=== PATIENT | female | born 1980 | race Caucasian/White ===

== ENCOUNTER 2018-02-04 13:58 | Inpatient (IN) ==
--- NOTE | 2018-02-04 14:44 | ED ---
HPI General Chief complaint: Head Injury Stated complaint: hit head x thursday (-loc) headache/confused Time Seen by Provider: 02/04/18 14:13 History of Present Illness HPI Narrative: The patient was seen and examined in the presence of the nurse. This patient is brought in by her . She had a head injury Thursday 10 AM. Duration 3 days. Severity is moderate. She tripped over a bunched up carpet and fell backwards and hit the back of her head. She complains of headache but had no LOC and no neck symptoms. She does have some bruising in the left mastoid area. She reports diminished hearing in the left ear. She has had some confusion issues. She takes no blood thinners. She has no alleviating factors. No exacerbating factors. Related Data Home Medications Medication Instructions Recorded Confirmed levonorgestrel [Mirena] 02/04/18 Allergies Allergy/AdvReac Type Severity Reaction Status Date / Time No Known Allergies Allergy Unverified 02/04/18 13:59 Review of Systems ROS: all other systems reviewed are negative [facility] Medical History Medical History Fibroids (Acute) No active medical problems (Acute) Surgical History Surgical History Previous section (Acute) Social History Social History Substance History: No History of Abuse Second Hand Smoke Exposure: No Smoking Status: Former smoker Tobacco Type: Cigarettes How Often Do You Have a Drink Containing Alcohol: Monthly or less Recent Travel in [facility] within the Last 8 Weeks: No Recent Out of Country Travel within the Last 8 Weeks: No Immunization History Tetanus Immunization: <5 Years Hx Influenza Vaccine This Season: No Exam Narrative Exam Narrative: GENERAL: Thin pleasant well-developed patient in no apparent distress. SKIN: Focused skin assessment reveals no rash and nodules. Skin is Warm and dry. HEAD: There is some ecchymosis to the left mastoid without crepitus or tenderness. Normocephalic. EYES: Pupils equal and round. No scleral icterus. No injection or drainage. ENT: No nasal bleeding or discharge. Mucous membranes pink and moist. Right TM is normal. Left TM is largely nonvisible due to cerumen obstruction. NECK: Trachea midline. No JVD. No midline tenderness CARDIOVASCULAR: Regular rate and rhythm. No murmur appreciated. RESPIRATORY: No accessory muscle use. Clear to auscultation. Breath sounds equal bilaterally. GASTROINTESTINAL: Abdomen soft, non-tender, nondistended. Hepatic and splenic margins not palpable. MUSCULOSKELETAL: No obvious deformities. No clubbing. No cyanosis. No edema. NEUROLOGICAL: Awake and alert. No obvious cranial nerve deficits. Motor grossly within normal limits. Normal speech. PSYCHIATRIC: Appropriate mood and affect; insight and judgment somewhat reduced . Course Initial Documented Vital Signs Temperature 97.8 F 02/04/18 13:59 Pulse Rate 91 H 02/04/18 13:59 Respiratory Rate 18 02/04/18 13:59 Blood Pressure 163/80 H 02/04/18 13:59 Pulse Oximetry 100 02/04/18 13:59 Last Documented Vital Signs Temperature 97.8 F 02/04/18 13:59 Pulse Rate 79 02/04/18 15:09 Respiratory Rate 16 02/04/18 15:09 Blood Pressure 135/81 02/04/18 15:09 Pulse Oximetry 100 02/04/18 15:09 Critical Care Time Critical Care Time: Yes Total Critical Care Time: 78 Attestation: Aggregate critical care time was 40 minutes. Time to perform other separately billable procedures was not included in the critical care time. My time did not include minutes spent treating any other patients simultaneously or on activities that did not directly contribute to the patient's treatment. The services I provided to this patient were to treat and/or prevent clinically significant deterioration that could result in: Permanent neurologic deficit, brain stem herniation, I provided critical care services requiring my management, as noted below: Chart data review, documentation time, medication orders and management, vital sign assessments/reviewing monitor data, ordering and reviewing lab tests, ordering and interpreting/reviewing x-rays and diagnostic studies, care of the patient and discussion of the patient with the admitting physicians. Medical Decision Making MDM Narrative Medical decision making narrative: Patient suffered a head injury 3 days ago and has some findings that are concerning for basilar skull fracture. I discussed this with the survey cad technician and I have ordered brain CT. She has had some confusion but no neurologic abnormalities otherwise beyond reported decreased left-sided hearing. IV placed and labs sent. Labs are reasonably normal. CT scan however shows temporal skull fracture with intracranial hemorrhage with mass-effect and midline shift. I reviewed the case in detail with neurosurgeon Dr. Bacon. He recommends transfer to the main hospital intensive care and admission to the trauma surgeon. I reviewed with the trauma surgeon who will agree to admit. Patient is critically ill. Multiple rechecks were done. She is controlling her airway fine at this time. Medical Screen Exam Complete: Yes Emergency Medical Condition: Yes Medical Records Medical records reviewed: Yes I reviewed the patient's medical records. Lab Data Lab results reviewed: Yes I reviewed the patient's lab results. Result diagrams: 02/04/18 14:40 02/04/18 14:40 Lab Results 02/04/18 02/04/18 02/04/18 Range/Units 14:40 14:40 14:40 CBC w Diff Slide review pending WBC 13.2 H (4.0-11.0) th/mm3 RBC 4.13 (4.00-5.30) mil/mm3 Hgb 13.4 (11.6-15.3) gm/dL Hct 38.5 (35.0-46.0) % MCV 93.4 (80.0-100.0) fL MCH 32.4 (27.0-34.0) pg MCHC 34.7 (32.0-36.0) % RDW 12.4 (11.6-17.2) % Plt Count 327 (150-450) th/mm3 MPV 7.6 (7.0-11.0) fL Neut % (Auto) 70.6 H (16.0-70.0) % Lymph % (Auto) 16.8 (9.0-44.0) % [place] % (Auto) 10.9 H (0.0-8.0) % Eos % (Auto) 0.1 (0.0-4.0) % Baso % (Auto) 1.6 (0.0-2.0) % Neut # (Auto) 9.4 H (1.8-7.7) th/mm3 Lymph # (Auto) 2.2 (1.0-4.8) th/mm3 [place] # (Auto) 1.4 H (0.0-0.9) th/mm3 Eos # (Auto) 0.0 (0.0-0.4) th/mm3 Baso # (Auto) 0.2 (0.0-0.2) th/mm3 Differential Comment . PT 10.4 (9.8-11.6) sec INR 1.0 Ratio APTT 24.0 L (24.3-30.1) sec Sodium 140 (136-145) meq/L Potassium 3.5 (3.5-5.1) meq/L Chloride 104 (98-107) meq/L Carbon Dioxide 26.8 (21.0-32.0) meq/L Anion Gap 9 (5-15) meq/L BUN 17 (7-18) mg/dL Creatinine 0.71 (0.50-1.00) mg/dL Estimated GFR Greater than 89 (>89) mL/min Random Glucose 128 H (74-106) mg/dL Calcium 9.1 (8.5-10.1) mg/dL Imaging Data Attestation: I personally reviewed and interpreted this imaging study as follows : Radiologist's impression: Head CT 02/04/18 14:26 CONCLUSION: 1. The examination demonstrates a 1.7 x 4.5 cm intraparenchymal hemorrhage in the left temporal lobe. There is moderate edema and some degree of mass effect associated with this. There is 3 mm of znus-[id number] falcine shift. 2. Probable skull fracture as described above. Discharge Plan Discharge Disposition Patient Disposition: 30 Still Patient Discharge Details Diagnosis: ICH (intracerebral hemorrhage), Skull fracture, non depressed Physicians Team ED Provider: Bertin Diaz Primary Care Provider: Primary Care Nikki Dixon Rxs /Orders / Referrals /Forms Prescriptions: No Action levonorgestrel [Mirena] 20 mcg/24 hr (5 years) Intrauterine Device RF: 0 Discharge Interventions Interventions: Vital Signs Last Done: 02/04/18 15:09 Status ED Status: With Doctor
[2018-02-04 14:59] LABS: Baso # (Auto) 0.2 th/mm3 (0.0-0.2); Baso % (Auto) 1.6 % (0.0-2.0); Eos % (Auto) 0.1 % (0.0-4.0); Hematocrit 38.5 % (35.0-46.0); Hemoglobin 13.4 gm/dL (11.6-15.3); Lymph # (Auto) 2.2 th/mm3 (1.0-4.8); Lymph % (Auto) 16.8 % (9.0-44.0); Mean Corpuscular HGB Conc 34.7 % (32.0-36.0); Mean Corpuscular Hemoglobin 32.4 pg (27.0-34.0); Mean Corpuscular Volume 93.4 fL (80.0-100.0); Mean Platelet Volume 7.6 fL (7.0-11.0); Mono # (Auto) 1.4 th/mm3 (0.0-0.9); Mono % (Auto) 10.9 % (0.0-8.0); Neut # (Auto) 9.4 th/mm3 (1.8-7.7); Neut % (Auto) 70.6 % (16.0-70.0); Platelet Count 327 th/mm3 (150-450); Red Blood Count 4.13 mil/mm3 (4.00-5.30); Red Cell Distribution Width 12.4 % (11.6-17.2); White Blood Count 13.2 th/mm3 (4.0-11.0)
[2018-02-04 15:06] LABS: Chloride 104 meq/L (98-107); Potassium 3.5 meq/L (3.5-5.1); Sodium 140 meq/L (136-145)
--- NOTE | 2018-02-04 15:06 | CT ---
EXAM DATE: 02/04/2018 2:33 PM EDT AGE/SEX: 37 years / Female INDICATIONS: Trauma. Hit head 4 days ago. Left head pain. Confusion. Evaluate for basal skull fractu re. CLINICAL DATA: This is the patient's initial encounter. Patient reports that signs and symptoms have been present for 4 - 6 days and indicates a pain score of 5/10. MEDICAL/SURGICAL HISTORY: None. section. RADIATION DOSE: 53.53 CTDI (mGy) COMPARISON: No prior exams available for comparison. TECHNIQUE: CT of the head without contrast. Using automated exposure control and adjustment of the mA and/or kV according to patient size, radiation dose was kept as low as reasonably achievable to ob tain optimal diagnostic quality images. DICOM format image data is available electronically for revi ew and comparison. FINDINGS: The examination demonstrates a sizable area of intraparenchymal hemorrhage in the left temporal berkley x. There is extra-axial hemorrhage seen as well along the anterior aspect of the left temporal lobe. There is surrounding vasogenic edema. There is 3 cm of zweq-lb-inosi falcine shift. There is mass eff ect on anterior and posterior horn of the lateral ventricular system on the left. No mass lesion is identified. The sulci and gyri are otherwise intact. The appearance of the posterio r fossa is unremarkable. Bone windowed imaging is provided. The exam demonstrates a small lucency in the anterior aspect of th e temporal bone which is felt to represent a small nondepressed skull fracture. The orbits are intact . The sinuses are clear. CONCLUSION: 1. The examination demonstrates a 1.7 x 4.5 cm intraparenchymal hemorrhage in the left temporal lobe . There is moderate edema and some degree of mass effect associated with this. There is 3 mm of left- to-right falcine shift. 2. Probable skull fracture as described above. Electronically signed by: Steven Bautista MD 02/04/2018 3:04 PM EDT
[2018-02-04 15:10] LABS: Anion Gap 9 meq/L (5-15); Blood Urea Nitrogen 17 mg/dL (7-18); Calcium 9.1 mg/dL (8.5-10.1); Carbon Dioxide 26.8 meq/L (21.0-32.0); Glucose,Random 128 mg/dL (74-106); Prothrombin Time 10.4 sec (9.8-11.6)
[2018-02-04 15:14] LABS: Glomerular Filtration Rate Greater Than 89 mL/min (>89)
--- NOTE | 2018-02-04 15:51 | P.CONNS ---
History of Present Illness Service: neurosurgery Primary Care Provider: No Primary Care Physician [facility] - History History Provided By: Patient - Medical History Medical History: Medical History (Last Updated 02/04/18 @ 14:18 by Cain Singh RN) Fibroids No active medical problems - Surgical History Surgical History: Surgical History (Last Updated 02/04/18 @ 14:18 by Cain Singh RN) Previous section - Tobacco History Second Hand Smoke Exposure: No Tobacco Use In Past 30 Days: No Smoking Status: Former smoker Tobacco Type: Cigarettes - Alcohol History How Often Do You Have a Drink Containing Alcohol: Monthly or less - Substance Use History Substance History: No History of Abuse - Travel History Recent Travel in the [place] Within the Last 8 Weeks: No Recent Travel Out of the Country Within the Last 8 Weeks: No - Immunization History Tetanus Immunization: <5 Years Hx Influenza Vaccine This Season: No Medications and Allergies Allergies Allergy/AdvReac Type Severity Reaction Status Date / Time No Known Allergies Allergy Unverified 02/04/18 13:59 Home Medications Medication Instructions Recorded Confirmed Type levonorgestrel [Mirena] 02/04/18 History Exam Vital signs: Vital Signs 02/04/18 13:59 02/04/18 15:09 Temperature 97.8 F Pulse Rate 91 H 79 Respiratory Rate 18 16 Blood Pressure 163/80 H 135/81 Pulse Oximetry 100 100 Intake & Output 02/03/18 02/04/18 02/04/18 18:59 06:59 18:59 Weight 42 kg Results - Laboratory Findings CBC and BMP: 02/04/18 14:40 02/04/18 14:40 Abnormal lab findings: Abnormal Labs 02/04/18 02/04/18 02/04/18 14:40 14:40 14:40 WBC 13.2 H Neut % (Auto) 70.6 H [place] % (Auto) 10.9 H Neut # (Auto) 9.4 H [place] # (Auto) 1.4 H APTT 24.0 L Random Glucose 128 H
[2018-02-04] MEDS: Pantoprazole Inj 40 MG Vial IV.PUSH SCH (18:16)
--- NOTE | 2018-02-04 19:49 | P.CONNS ---
History of Present Illness Service: Neurosurgery Consult date: 02/04/18 Requesting Physician: Elvia Man Reason for Consult: head injury Primary Care Provider: No Primary Care Physician Chief Complaint: Aphasia History of Present Illness: The patient is a 37 year old, right handed female, who suffered a traumatic brain injury secondary to a fall. Apparently she tripped and fell. No seizure activity reported. No tongue biting. No incontinence of stool or urine. She was moving strongly both upper and lower extremities. No focal motor weakness. No sensory loss. She had significant expressive aphasia. She had GCS = [address] showed intraparenchymal hemorrhage in the left temporal lobe with moderate edema. Neurosurgical consultation was requested Review of Systems unobtainable due to mental condition PMF - History History Provided By: Patient - Medical History Medical History: Medical History (Last Reviewed 02/05/18 @ 13:42 by Ty Bacon MD) Fibroids No active medical problems - Surgical History Surgical History: Surgical History (Last Reviewed 02/05/18 @ 13:42 by Ty Bacon MD) Previous section - Family History Family History: Family History (Last Updated 02/05/18 @ 13:42 by Ty Bacon MD) Other Family history unobtainable Family history unobtainable due to patient's condition - Tobacco History Second Hand Smoke Exposure: No Tobacco Use In Past 30 Days: No Smoking Status: Former smoker Tobacco Type: Cigarettes - Alcohol History How Often Do You Have a Drink Containing Alcohol: Monthly or less - Substance Use History Substance History: No History of Abuse - Substance Use Type Marijuana Status: Active - Travel History Recent Travel in the [place] Within the Last 8 Weeks: No Recent Travel Out of the Country Within the Last 8 Weeks: No - Immunization History Tetanus Immunization: <5 Years Hx Influenza Vaccine This Season: No Medications and Allergies Active Medications: Active Medications Chlorhexidine Gluconate (Chlorhexidine 2% Cloth) 3 pack TOPICAL DAILY@0400 PRN PRN Reason: Extra cloth needed Stop: 02/10/18 03:59 Chlorhexidine Gluconate (Chlorhexidine 2% Cloth) 3 pack TOPICAL DAILY@0400 LEILANI Stop: 02/10/18 03:59 Docusate Sodium (Colace) 100 mg PO BID LEILANI Enalaprilat (Vasotec Inj) 1.25 mg IV.PUSH Q8H PRN PRN Reason: Blood pressure 180/95 Acetaminophen (Ofirmev Inj) 1,000 mg in 100 mls @ 400 mls/hr IV.SIG Q6H PRN PRN Reason: Pain or Fever > 101 F Levetiracetam 500 mg/ Sodium (Chloride) 105 mls @ 400 mls/hr IV.SIG Q12H LEILANI Last Admin: 02/04/18 18:17 Dose: 400 mls/hr Sodium Chloride (Ns Inj) 1,000 mls @ 100 mls/hr IV.CONT .Q10H LEILANI Ondansetron HCl (Zofran Inj) 4 mg IV.PUSH Q6H PRN PRN Reason: NAUSEA OR VOMITING Pantoprazole Sodium (Protonix Inj) 40 mg IV.PUSH Q24H LEILANI Last Admin: 02/04/18 18:16 Dose: 40 mg Sodium Chloride (Ns Flush) 2 ml IV.FLUSH UNSCH PRN PRN Reason: FLUSH AFTER USING IV ACCESS Last Admin: 02/04/18 18:17 Dose: 2 ml Allergies Allergy/AdvReac Type Severity Reaction Status Date / Time meperidine [From Demerol] Allergy Mild Nausea Verified 02/04/18 15:50 Penicillins Allergy Mild Hives Verified 02/04/18 15:50 Home Medications Medication Instructions Recorded Confirmed Type levonorgestrel [Mirena] 02/04/18 History Exam Vital signs: Vital Signs 02/04/18 13:59 02/04/18 15:09 02/04/18 15:57 Temperature 97.8 F Pulse Rate 91 H 79 79 Respiratory Rate 18 16 16 Blood Pressure 163/80 H 135/81 126/74 Pulse Oximetry 100 100 99 02/04/18 16:50 02/04/18 18:08 Temperature Pulse Rate 77 Respiratory Rate 16 Blood Pressure 121/71 Pulse Oximetry 100 Intake & Output 02/04/18 02/04/18 02/05/18 06:59 18:59 06:59 Weight 42 kg Narrative: The patient is alert, awake. Comfortable, in no acute distress. Speech demonstrates expressive aphasia Cranial nerve examination: pupils to be equal, round and reactive to light. Extra-ocular movements are intact. Facial motor and sensory function are normal and symmetrical. Gross hearing appears intact. Sternocleidomastoid and trapezius muscles are symmetrical. Other cranial nerves are intact. Neck is soft and supple with a good range of motion without pain. Muscle strength is normal in all muscle groups of both upper and lower extremities. Sensory examination is intact to light touch and pin prick in both the upper and lower extremities. Deep tendon reflexes are symmetrical in both upper and lower extremities. There is a bilateral plantar flexion response. Cerebellar examination is unremarkable, without deficits. Lungs are clear Heart regular rhythm is regular rate Skin warm and dry Results - Laboratory Findings CBC and BMP: 02/05/18 02:40 02/05/18 02:40 Abnormal lab findings: Abnormal Labs 02/04/18 02/04/18 02/04/18 14:40 14:40 14:40 WBC 13.2 H Neut % (Auto) 70.6 H [place] % (Auto) 10.9 H Neut # (Auto) 9.4 H [place] # (Auto) 1.4 H APTT 24.0 L Random Glucose 128 H Assessment and Plan - Plan 37 year old female with a left posterior temporal hemorrhagic infarction I have reviewed the clinical and radiological findings Head CT 02/04/18 14:26 CONCLUSION: 1. The examination demonstrates a 1.7 x 4.5 cm intraparenchymal hemorrhage in the left temporal lobe. There is moderate edema and some degree of mass effect associated with this. There is 3 mm of bxur-of-efmzv falcine shift. 2. Probable skull fracture as described above. Neuro: neuro checks in a serial fashion. Nonoperative treatment. Mannitol 25 gm IV every 6 hrs. MRI of the brain in AM with contrast to rule out an underlying mass Consult neurology Pulmonary: aggressive pulmonary toilette, nasotracheal suction, and breathing treatments with nebulizers. Daily PT and OT Renal: monitor closely urine output, BUN and creatinine Endocrine: Monitor serial Acu checks and SSI as needed in detail ID monitor for signs of infection Protonix for stress ulcer prophylaxis Jose hose and SCD's for DVT prophylaxis Caprini VTE Risk Assessment Caprini VTE Risk Assessment: Moderate/High Risk (score >= 2) (trauma) VTE Pharmacological Exception Reason: High risk for bleeding Caprini Risk Assessment Model: Point Value = 1 Point Value = 2 Point Value = 3 Point Value = 5 Age 41-60 Minor surgery BMI > 25 kg/m2 Swollen legs Varicose veins or History of unexplained or recurrent spontaneous Oral contraceptives or hormone replacement Sepsis (< 1 month) Serious lung disease, including pneumonia (< 1 month) Abnormal pulmonary function Acute myocardial infarction Congestive heart failure (< 1 month) History of inflammatory bowel disease Medical patient at bed rest Age 61-74 Arthroscopic surgery Major open surgery (> 45 min) Laparoscopic surgery (> 45 min) Malignancy Confined to bed (> 72 hours) Immobilizing plaster cast Central venous access Age >= 75 History of VTE Family history of VTE Factor V Leiden Prothrombin [id number] Lupus anticoagulant Anticardiolipin antibodies Elevated serum homocysteine Heparin-induced thrombocytopenia Other congenital or acquired thrombophilia Stroke (< 1 month) Elective arthroplasty Hip, pelvis, or leg fracture Acute spinal cord injury (< 1 month) Prophylaxis Regimen: Total Risk Factor Score Risk Level Prophylaxis Regimen 0-1 Low Early ambulation 2 Moderate Order ONE of the following: *Sequential Compression Device (SCD) *Heparin 5000 units SQ BID 3-4 Higher Order ONE of the following medications: *Heparin 5000 units SQ TID *Enoxaparin/Lovenox 40 mg SQ daily (WT < 150 kg, CrCl > 30 mL/min) *Enoxaparin/Lovenox 30 mg SQ daily (WT < 150 kg, CrCl > 10-29 mL/min) *Enoxaparin/Lovenox 30 mg SQ BID (WT < 150 kg, CrCl > 30 mL/min) AND/OR *Sequential Compression Device (SCD) 5 or more Highest Order ONE of the following medications: *Heparin 5000 units SQ TID (Preferred with Epidurals) *Enoxaparin/Lovenox 40 mg SQ daily (WT < 150 kg, CrCl > 30 mL/min) *Enoxaparin/Lovenox 30 mg SQ daily (WT < 150 kg, CrCl > 10-29 mL/min) *Enoxaparin/Lovenox 30 mg SQ BID (WT < 150 kg, CrCl > 30 mL/min) AND *Sequential Compression Device (SCD) Further recommendations will be provided depending on the patient's clinical evaluation and follow up studies.
[2018-02-04] MEDS: Sod Chloride 0.9% Inj 1,000 ML IV.CONT SCH (20:10)
[2018-02-04] MEDS: Docusate Sodium 100 MG Capsule PO SCH (20:11)
--- NOTE | 2018-02-04 21:23 | P.HPCC ---
History of Present Illness Primary Care Physician: No Primary Care Physician History of Present Illness: 37 y.o female tripped last Thursday and hit her head-since then c/o headache, somnolent at times,with some word finding difficulties-GCS 15,HD normal,moving all 4 extremities Inpatient Certification: I certify that the inpatient services were ordered in accordance with Medicare regulations governing the order. This includes certification that hospital inpatient services are reasonable and necessary and in the case of services not specified as inpatient-only under 42 CFR 419.22(n), that they are appropriately provided as inpatient services in accordance to with the 2-midnight benchmark under 43 CFR 412.3(e) Estimated Total Length of Stay (Days): 4 Plans for Post Hospital Care: Home Review of Systems All other systems reviewed negative except as stated in HPI [facility] - History History Provided By: Patient - Medical History Medical History: Medical History (Last Updated 02/04/18 @ 14:18 by Cain Singh RN) Fibroids No active medical problems - Surgical History Surgical History: Surgical History (Last Updated 02/04/18 @ 14:18 by Cain Singh RN) Previous section - Tobacco History Second Hand Smoke Exposure: No Tobacco Use In Past 30 Days: No Smoking Status: Former smoker Tobacco Type: Cigarettes - Alcohol History How Often Do You Have a Drink Containing Alcohol: Monthly or less - Substance Use History Substance History: No History of Abuse - Travel History Recent Travel in the [place] Within the Last 8 Weeks: No Recent Travel Out of the Country Within the Last 8 Weeks: No - Immunization History Tetanus Immunization: <5 Years Hx Influenza Vaccine This Season: No Medications and Allergies Active Medications: Active Medications Chlorhexidine Gluconate (Chlorhexidine 2% Cloth) 3 pack TOPICAL DAILY@0400 PRN PRN Reason: Extra cloth needed Stop: 02/10/18 03:59 Chlorhexidine Gluconate (Chlorhexidine 2% Cloth) 3 pack TOPICAL DAILY@0400 [facility] Stop: 02/10/18 03:59 Docusate Sodium (Colace) 100 mg PO BID [facility] Last Admin: 02/04/18 20:11 Dose: 100 mg Enalaprilat (Vasotec Inj) 1.25 mg IV.PUSH Q8H PRN PRN Reason: Blood pressure 180/95 Acetaminophen (Ofirmev Inj) 1,000 mg in 100 mls @ 400 mls/hr IV.SIG Q6H PRN PRN Reason: Pain or Fever > 101 F Levetiracetam 500 mg/ Sodium (Chloride) 105 mls @ 400 mls/hr IV.SIG Q12H [facility] Last Admin: 02/04/18 18:17 Dose: 400 mls/hr Sodium Chloride (Ns Inj) 1,000 mls @ 100 mls/hr IV.CONT .Q10H [facility] Last Admin: 02/04/18 20:10 Dose: 100 mls/hr Mannitol (Mannitol Inj) 25 gm IV.SIG Q6H [facility] Ondansetron HCl (Zofran Inj) 4 mg IV.PUSH Q6H PRN PRN Reason: NAUSEA OR VOMITING Pantoprazole Sodium (Protonix Inj) 40 mg IV.PUSH Q24H [facility] Last Admin: 02/04/18 18:16 Dose: 40 mg Sodium Chloride (Ns Flush) 2 ml IV.FLUSH UNSCH PRN PRN Reason: FLUSH AFTER USING IV ACCESS Last Admin: 02/04/18 20:09 Dose: 2 ml Allergies Allergy/AdvReac Type Severity Reaction Status Date / Time meperidine [From Demerol] Allergy Mild Nausea Verified 02/04/18 15:50 Penicillins Allergy Mild Hives Verified 02/04/18 15:50 Home Medications Medication Instructions Recorded Confirmed Type levonorgestrel [Mirena] 02/04/18 History Results - Labs CBC & Chem 7: 02/04/18 14:40 02/04/18 14:40 Labs: Short CBC 02/04/18 Range/Units 14:40 WBC 13.2 H (4.0-11.0) th/mm3 Hgb 13.4 (11.6-15.3) gm/dL Hct 38.5 (35.0-46.0) % Plt Count 327 (150-450) th/mm3 BMP 02/04/18 14:40 Sodium 140 Potassium 3.5 Chloride 104 Carbon Dioxide 26.8 BUN 17 Creatinine 0.71 Calcium 9.1 - Imaging Impressions Head CT 02/04/18 14:26 CONCLUSION: 1. The examination demonstrates a 1.7 x 4.5 cm intraparenchymal hemorrhage in the left temporal lobe. There is moderate edema and some degree of mass effect associated with this. There is 3 mm of [id number] falcine shift. 2. Probable skull fracture as described above. Exam Vital signs: Vital Signs 02/04/18 13:59 02/04/18 15:09 02/04/18 15:57 Temperature 97.8 F Pulse Rate 91 H 79 79 Respiratory Rate 18 16 16 Blood Pressure 163/80 H 135/81 126/74 Pulse Oximetry 100 100 99 02/04/18 16:50 02/04/18 18:08 Temperature Pulse Rate 77 Respiratory Rate 16 Blood Pressure 121/71 Pulse Oximetry 100 Intake & Output 02/04/18 02/04/18 02/05/18 06:59 18:59 06:59 Weight 42 kg - Constitutional no acute distress - Routine HEENT Exam Head: Present: normocephalic, atraumatic Eye: Present: normal accommodation ENT: Present: mucous membranes moist, TM's clear bilaterally - Routine Neck Exam Present: supple, full ROM - Routine Respiratory Exam Present: CTA bilaterally - Routine Cardiovascular Exam Present: RRR - Routine Abdominal Exam Present: soft, normoactive bowel sounds - Routine Neurological Exam Present: alert, oriented X3, moving all extremities, normal tone, normal speech Caprini VTE Risk Assessment Caprini VTE Risk Assessment: Moderate/High Risk (score >= 2) (trauma) VTE Pharmacological Exception Reason: High risk for bleeding Caprini Risk Assessment Model: Point Value = 1 Point Value = 2 Point Value = 3 Point Value = 5 Age 41-60 Minor surgery BMI > 25 kg/m2 Swollen legs Varicose veins or History of unexplained or recurrent spontaneous Oral contraceptives or hormone replacement Sepsis (< 1 month) Serious lung disease, including pneumonia (< 1 month) Abnormal pulmonary function Acute myocardial infarction Congestive heart failure (< 1 month) History of inflammatory bowel disease Medical patient at bed rest Age 61-74 Arthroscopic surgery Major open surgery (> 45 min) Laparoscopic surgery (> 45 min) Malignancy Confined to bed (> 72 hours) Immobilizing plaster cast Central venous access Age >= 75 History of VTE Family history of VTE Factor V Leiden Prothrombin [id number] Lupus anticoagulant Anticardiolipin antibodies Elevated serum homocysteine Heparin-induced thrombocytopenia Other congenital or acquired thrombophilia Stroke (< 1 month) Elective arthroplasty Hip, pelvis, or leg fracture Acute spinal cord injury (< 1 month) Prophylaxis Regimen: Total Risk Factor Score Risk Level Prophylaxis Regimen 0-1 Low Early ambulation 2 Moderate Order ONE of the following: *Sequential Compression Device (SCD) *Heparin 5000 units SQ BID 3-4 Higher Order ONE of the following medications: *Heparin 5000 units SQ TID *Enoxaparin/Lovenox 40 mg SQ daily (WT < 150 kg, CrCl > 30 mL/min) *Enoxaparin/Lovenox 30 mg SQ daily (WT < 150 kg, CrCl > 10-29 mL/min) *Enoxaparin/Lovenox 30 mg SQ BID (WT < 150 kg, CrCl > 30 mL/min) AND/OR *Sequential Compression Device (SCD) 5 or more Highest Order ONE of the following medications: *Heparin 5000 units SQ TID (Preferred with Epidurals) *Enoxaparin/Lovenox 40 mg SQ daily (WT < 150 kg, CrCl > 30 mL/min) *Enoxaparin/Lovenox 30 mg SQ daily (WT < 150 kg, CrCl > 10-29 mL/min) *Enoxaparin/Lovenox 30 mg SQ BID (WT < 150 kg, CrCl > 30 mL/min) AND *Sequential Compression Device (SCD) Assessment and Plan - Assessment and Plan Plan: large IPH left temporal area admit to the [facility] Neuro checks pain control keppra MRI in am
[2018-02-04] MEDS ORDERED: Haloperidol Inj 5 MG/ML Ampul IV.PUSH PRN (21:40)
[2018-02-04] MEDS: Morphine Inj 4 MG/ML Vial IV.PUSH PRN (22:10)
[2018-02-05 03:00] LABS: Baso # (Auto) 0.1 th/mm3 (0.0-0.2); Baso % (Auto) 0.6 % (0.0-2.0); Eos # (Auto) 0.1 th/mm3 (0.0-0.4); Eos % (Auto) 0.6 % (0.0-4.0); Hematocrit 37.8 % (35.0-46.0); Hemoglobin 12.6 gm/dL (11.6-15.3); Lymph % (Auto) 23.3 % (9.0-44.0); Mean Corpuscular HGB Conc 33.4 % (32.0-36.0); Mean Corpuscular Hemoglobin 31.4 pg (27.0-34.0); Mean Corpuscular Volume 94.1 fL (80.0-100.0); Mono % (Auto) 11.3 % (0.0-8.0); Neut # (Auto) 5.5 th/mm3 (1.8-7.7); Neut % (Auto) 64.2 % (16.0-70.0); Platelet Count 277 th/mm3 (150-450); Red Blood Count 4.01 mil/mm3 (4.00-5.30); Red Cell Distribution Width 13.4 % (11.6-17.2); White Blood Count 8.6 th/mm3 (4.0-11.0)
[2018-02-05] MEDS: Sod Chloride 0.9% Inj 1,000 ML IV.CONT SCH ×2 (03:10→18:07)
[2018-02-05] MEDS: Chlorhexidine Gluconate 2% 1 Pack (2 Cloths) TOPICAL SCH (03:10)
[2018-02-05 03:31] LABS: Alanine Aminotransferase 31 U/L (10-53); Albumin 3.3 g/dL (3.4-5.0); Alkaline Phosphatase 51 U/L (45-117); Anion Gap 7 meq/L (5-15); Aspartate Aminotransferase 29 U/L (15-37); Blood Urea Nitrogen 11 mg/dL (7-18); Calcium 8.8 mg/dL (8.5-10.1); Carbon Dioxide 27.2 meq/L (21.0-32.0); Chloride 107 meq/L (98-107); Glomerular Filtration Rate Greater Than 89 mL/min (>89); Glucose,Random 94 mg/dL (74-106); Potassium 4.2 meq/L (3.5-5.1); Sodium 141 meq/L (136-145); Total Protein 7.2 g/dL (6.4-8.2)
[2018-02-05] MEDS ORDERED: Chlorhexidine Gluconate 2% 1 Pack (2 Cloths) TOPICAL PRN (04:00)
--- NOTE | 2018-02-05 08:19 | P.NPEVAL ---
Patient History - Record/History Review Reason for Referral: The patient is a 37 year old right handed female status post traumatic brain injury secondary to a fall sustained on 02/04/2018. The patient tripped and fell. GCS = [address] showed intraparenchymal hemorrhage in the left temporal lobe with moderate edema. Since admission, she required Haldol PRN. She is on Keppra. She is referred for baseline neurobehavioral status examination per trauma protocol to assess cognitive, behavioral and emotional aspects of the injury and to provide treatment recommendations. [facility] - History History Provided By: Patient - Medical History Medical History: Medical History (Last Reviewed 02/05/18 @ 08:48 by ROXI Kaye) Fibroids No active medical problems - Surgical History Surgical History: Surgical History (Last Updated 02/04/18 @ 14:18 by Cain Singh RN) Previous section - Tobacco History Second Hand Smoke Exposure: No Tobacco Use In Past 30 Days: No Smoking Status: Former smoker Tobacco Type: Cigarettes - Alcohol History How Often Do You Have a Drink Containing Alcohol: Monthly or less - Substance Use History Substance History: Active Abuse - Substance Use Type Marijuana Status: Active - Travel History Recent Travel in the [place] Within the Last 8 Weeks: No Recent Travel Out of the Country Within the Last 8 Weeks: No - Immunization History Tetanus Immunization: <5 Years Hx Influenza Vaccine This Season: No Medications Active Medications Chlorhexidine Gluconate (Chlorhexidine 2% Cloth) 3 pack TOPICAL DAILY@0400 PRN PRN Reason: Extra cloth needed Stop: 02/10/18 03:59 Chlorhexidine Gluconate (Chlorhexidine 2% Cloth) 3 pack TOPICAL DAILY@0400 [facility] Stop: 02/10/18 03:59 Last Admin: 02/05/18 03:10 Dose: 3 pack Docusate Sodium (Colace) 100 mg PO BID [facility] Last Admin: 02/04/18 20:11 Dose: 100 mg Enalaprilat (Vasotec Inj) 1.25 mg IV.PUSH Q8H PRN PRN Reason: Blood pressure 180/95 Haloperidol Lactate (Haldol Inj) 2.5 mg IV.PUSH Q4H PRN PRN Reason: AGITATION Last Admin: 02/04/18 22:12 Dose: 2.5 mg Acetaminophen (Ofirmev Inj) 1,000 mg in 100 mls @ 400 mls/hr IV.SIG Q6H PRN PRN Reason: Pain or Fever > 101 F Levetiracetam 500 mg/ Sodium (Chloride) 105 mls @ 400 mls/hr IV.SIG Q12H [facility] Last Infusion: 02/05/18 05:25 Dose: Infused Sodium Chloride (Ns Inj) 1,000 mls @ 100 mls/hr IV.CONT .Q10H [facility] Last Admin: 02/05/18 03:10 Dose: 100 mls/hr Mannitol (Mannitol Inj) 25 gm IV.SIG Q6H [facility] Last Admin: 02/05/18 02:41 Dose: 25 gm Morphine Sulfate (Morphine Inj) 2 mg IV.PUSH Q3H PRN PRN Reason: BREAKTHROUGH PAIN Last Admin: 02/04/18 22:10 Dose: 2 mg Ondansetron HCl (Zofran Inj) 4 mg IV.PUSH Q6H PRN PRN Reason: NAUSEA OR VOMITING Last Admin: 02/04/18 21:34 Dose: 4 mg Pantoprazole Sodium (Protonix Inj) 40 mg IV.PUSH Q24H [facility] Last Admin: 02/04/18 18:16 Dose: 40 mg Sodium Chloride (Ns Flush) 2 ml IV.FLUSH UNSCH PRN PRN Reason: FLUSH AFTER USING IV ACCESS Last Admin: 02/04/18 20:09 Dose: 2 ml Mental Status Assessment - Mental Status Orientation: unable to assess: Self, Place, Time, Situation Absent: Hallucinations, Delusions Adjustment/Coping Assessment - Adjustment/Coping Adjustment/Coping: Severe: Awareness, Insight - Observation In terms of emotional functioning, the patient demonstrated challenges. This patient demonstrated signs of agitation, impulsivity and disinhibition since her admission. Thought content was free from suicidal, homicidal or paranoid ideation, and thought processes were disorganized, due in part to limited comprehension. The patient appears to possess minimal insight and awareness into her situation and within the limits of this brief evaluation, poor judgment. - Goals/Team Members LTG Status: Deferred STG Status: Deferred Team Members: Neuropsychologist Behavior - Behavior Agitation: Moderate - Observation Behaviorally, the patient demonstrated signs of agitation, impulsivity and disinhibition at the time of her admission and continues so now that she is in ISC. There was no remarkable evidence of a formal thought disorder or psychosis. 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 [facility] Level: Level IV Disinhibition Score: 33.25 Aggression Score: 24.50 Lability Score: 42.00 Agitated Behavior Total Score: 33 Maximizing Acute Care Outcome: It is recommended that the patient be monitored for emergent behavioral impulsivity as the medical condition evolves. This patients neuropathological challenges may limit rehabilitation potential going forward, and these challenges will require specialized therapeutic skills to maximize outcome. Additionally, the patients family is experiencing ongoing issues of adjustment given the traumatic nature of the injury, and they may benefit from ongoing psychological assistance. At this point in the recovery process, the patient does not have cognitive capacity as the patient is unable to understand a situation and its likely consequences, nor is the patient able to manipulate information rationally. Cognitive capacity will be assessed throughout the recovery process. - Discharge Planning Anticipated Problems: Ongoing areas of concern will include behavioral impulsivity, lack of insight and judgment, which is expected to improve with time and treatment. Treatment Plan: This clinician will continue to follow with you throughout the course of this patients critical care treatment, and I will be available to meet with the patients family/support system to facilitate their understanding and the ongoing care of their family member. The goals of neuropsychological intervention shall be both educational and supportive to the family/support system as is deemed clinically appropriate. Thank you for the opportunity to assist in this patients care. Jean Paul Quintana, Ph.D., ABPP Board Certified in Clinical Neuropsychology [place] [employer] [place] Licensed Psychologist #[id number]
[2018-02-05] MEDS: Docusate Sodium 100 MG Capsule PO SCH ×2 (09:27→21:25)
--- NOTE | 2018-02-05 10:53 | P.PNNS ---
Subjective Interval history: pt has been transferred to [facility] from [facility] admitted to the trauma service. MRI Brain has been ordered, awaiting study. reports of speech difficulties, but moving extremities well bilaterally. no neuro changes overnight. <Kendra Connors - Last Filed: 02/05/18 10:57> Physical Exam Vital signs: Vital Signs 02/04/18 13:59 02/04/18 15:09 02/04/18 15:57 Temperature 97.8 F Pulse Rate 91 H 79 79 Respiratory Rate 18 16 16 Blood Pressure 163/80 H 135/81 126/74 Pulse Oximetry 100 100 99 02/04/18 16:50 02/04/18 18:08 02/04/18 20:00 Temperature 98.3 F Pulse Rate 77 73 Respiratory Rate 16 18 Blood Pressure 121/71 119/69 Pulse Oximetry 100 100 02/04/18 22:25 02/05/18 00:00 02/05/18 04:00 Temperature 98.7 F 97.8 F Pulse Rate 55 L 61 Respiratory Rate 18 16 21 Blood Pressure 96/59 L 98/58 L Pulse Oximetry 100 100 02/05/18 08:00 Temperature Pulse Rate Respiratory Rate Blood Pressure Pulse Oximetry 99 Intake & Output 02/04/18 02/05/18 02/05/18 18:59 06:59 18:59 Intake Total 105 / 105 1515 / 1515 Output Total 1000 / 1000 Balance 105 / 105 515 / 515 Weight 42 kg 42.7 kg Intake: IV 105 / 105 1105 / 1105 NS Inj 1,000 ML @ 100 mls/hr IV 1000 / 1000 .CONT .Q10H [facility] Rx#:[id number] Keppra Inj 500 MG In NS Inj 100 105 / 105 105 / 105 ML @ 400 mls/hr IV.SIG Q12H [facility] Rx#:[id number] Oral 410 / 410 Output: Urine 1000 / 1000 Other: Weight On Admission 41.6 kg Narrative: GENERAL: Laying in bed NAD. SKIN: Warm and dry. HEAD: Normocephalic. EYES: Pupils equal and round. No scleral icterus. No injection or drainage. ENT: No nasal bleeding or discharge. Mucous membranes pink and moist. NECK: Trachea midline. No JVD. CARDIOVASCULAR: Regular rate and rhythm. RESPIRATORY: No accessory muscle use. Clear to auscultation. Breath sounds equal bilaterally. GASTROINTESTINAL: Abdomen soft, non-tender, nondistended. Hepatic and splenic margins not palpable. MUSCULOSKELETAL: Extremities without clubbing, cyanosis, or edema. No obvious deformities. NEUROLOGICAL: Awake, slightly somnolent. Minimally converses. Followed simple commands. Pupils equal, facial symmetric, EOMs intact. 5/5 in both upper and lower extremities. <Kendra Connors - Last Filed: 02/05/18 10:57> Vital signs: Vital Signs 02/04/18 13:59 02/04/18 15:09 02/04/18 15:57 Temperature 97.8 F Pulse Rate 91 H 79 79 Respiratory Rate 18 16 16 Blood Pressure 163/80 H 135/81 126/74 Pulse Oximetry 100 100 99 02/04/18 16:50 02/04/18 18:08 02/04/18 20:00 Temperature 98.3 F Pulse Rate 77 73 Respiratory Rate 16 18 Blood Pressure 121/71 119/69 Pulse Oximetry 100 100 02/04/18 22:25 02/05/18 00:00 02/05/18 04:00 Temperature 98.7 F 97.8 F Pulse Rate 55 L 61 Respiratory Rate 18 16 21 Blood Pressure 96/59 L 98/58 L Pulse Oximetry 100 100 02/05/18 08:00 Temperature Pulse Rate 61 Respiratory Rate Blood Pressure Pulse Oximetry 99 Intake & Output 02/04/18 02/05/18 02/05/18 18:59 06:59 18:59 Intake Total 105 / 105 1515 / 1515 Output Total 1000 / 1000 Balance 105 / 105 515 / 515 Weight 42 kg 42.7 kg Intake: IV 105 / 105 1105 / 1105 NS Inj 1,000 ML @ 100 mls/hr IV 1000 / 1000 .CONT .Q10H [facility] Rx#:[id number] Keppra Inj 500 MG In NS Inj 100 105 / 105 105 / 105 ML @ 400 mls/hr IV.SIG Q12H [facility] Rx#:[id number] Oral 410 / 410 Output: Urine 1000 / 1000 Other: Weight On Admission 41.6 kg Narrative: The patient is alert, awake. Comfortable, expressive aphasia improved Cranial nerve examination: pupils to be equal, round and reactive to light. Extra-ocular movements are intact. Facial motor and sensory function are normal and symmetrical. Gross hearing appears intact. Sternocleidomastoid and trapezius muscles are symmetrical. Other cranial nerves are intact. Neck is soft and supple with a good range of motion without pain. Muscle strength is normal in all muscle groups of both upper and lower extremities. Sensory examination is intact to light touch and pin prick in both the upper and lower extremities. Deep tendon reflexes are symmetrical in both upper and lower extremities. There is a bilateral plantar flexion response. Cerebellar examination is unremarkable, without deficits. Lungs are clear Heart regular rhythm is regular rate Skin warm and dry - Constitutional mild distress <Ty Bacon - Last Filed: 02/05/18 13:47> Assessment and Plan - Plan 37 year old female reportedly fell backwards striking her head on floor 02/01/18 , brought to ED by 02/04/18 due to confusion left posterior temporal intraparenchymal hemorrhage with 3 mm midline shift, small nondepressed temporal bone skull fracture Head CT 02/04/18 14:26 CONCLUSION: 1. The examination demonstrates a 1.7 x 4.5 cm intraparenchymal hemorrhage in the left temporal lobe. There is moderate edema and some degree of mass effect associated with this. There is 3 mm of [id number] falcine shift. 2. Probable skull fracture as described above. Plan: awaiting MRI Brain w/wo contrast to rule out underlying mass cont nonoperative treatment Mannitol 25 gm q 6 hours, f/u serum os cont neuro checks q 1 hour SCDs and TEDs for dvt prophylaxis, chem proph CI at this time due to ICH protonix for stress ulcer prophylaxis seizure prophylaxis <Kendra Connors - Last Filed: 02/05/18 10:57> - Plan 37 year old female with a left posterior temporal hemorrhagic infarction I have reviewed her CT Head CT 02/04/18 14:26 CONCLUSION: 1. The examination demonstrates a 1.7 x 4.5 cm intraparenchymal hemorrhage in the left temporal lobe. There is moderate edema and some degree of mass effect associated with this. There is 3 mm of yqfq-gn-uyfra falcine shift. 2. Probable skull fracture as described above. Neuro: neuro checks in a serial fashion. Nonoperative treatment. Mannitol 25 gm IV every 6 hrs. I reviewed her MRI of the brain Head MRI 02/05/18 00:00 CONCLUSION: 1. Evolving large left temporal intraparenchymal hematoma with associated prominent surrounding edema. Overall this measures 6.7 x 4.1 cm with moderate mass effect and subtle increased vono-zq-ccqif subfalcine shift now measuring 6 mm. 2. No definitive evidence for underlying mass. 3. No intercurrent hemorrhage. Consult neurology Pulmonary: aggressive pulmonary toilette, nasotracheal suction, and breathing treatments with nebulizers. Daily PT and OT Renal: monitor closely urine output, BUN and creatinine Endocrine: Monitor serial Acu checks and SSI as needed in detail ID monitor for signs of infection Protonix for stress ulcer prophylaxis Jose hose and SCD's for DVT prophylaxis Caprini VTE Risk Assessment Caprini VTE Risk Assessment: Moderate/High Risk (score >= 2) (trauma) VTE Pharmacological Exception Reason: High risk for bleeding Caprini Risk Assessment Model: Point Value = 1 Point Value = 2 Point Value = 3 Point Value = 5 Age 41-60 Minor surgery BMI > 25 kg/m2 Swollen legs Varicose veins or History of unexplained or recurrent spontaneous Oral contraceptives or hormone replacement Sepsis (< 1 month) Serious lung disease, including pneumonia (< 1 month) Abnormal pulmonary function Acute myocardial infarction Congestive heart failure (< 1 month) History of inflammatory bowel disease Medical patient at bed rest Age 61-74 Arthroscopic surgery Major open surgery (> 45 min) Laparoscopic surgery (> 45 min) Malignancy Confined to bed (> 72 hours) Immobilizing plaster cast Central venous access Age >= 75 History of VTE Family history of VTE Factor V Leiden Prothrombin [id number] Lupus anticoagulant Anticardiolipin antibodies Elevated serum homocysteine Heparin-induced thrombocytopenia Other congenital or acquired thrombophilia Stroke (< 1 month) Elective arthroplasty Hip, pelvis, or leg fracture Acute spinal cord injury (< 1 month) Prophylaxis Regimen: Total Risk Factor Score Risk Level Prophylaxis Regimen 0-1 Low Early ambulation 2 Moderate Order ONE of the following: *Sequential Compression Device (SCD) *Heparin 5000 units SQ BID 3-4 Higher Order ONE of the following medications: *Heparin 5000 units SQ TID *Enoxaparin/Lovenox 40 mg SQ daily (WT < 150 kg, CrCl > 30 mL/min) *Enoxaparin/Lovenox 30 mg SQ daily (WT < 150 kg, CrCl > 10-29 mL/min) *Enoxaparin/Lovenox 30 mg SQ BID (WT < 150 kg, CrCl > 30 mL/min) AND/OR *Sequential Compression Device (SCD) 5 or more Highest Order ONE of the following medications: *Heparin 5000 units SQ TID (Preferred with Epidurals) *Enoxaparin/Lovenox 40 mg SQ daily (WT < 150 kg, CrCl > 30 mL/min) *Enoxaparin/Lovenox 30 mg SQ daily (WT < 150 kg, CrCl > 10-29 mL/min) *Enoxaparin/Lovenox 30 mg SQ BID (WT < 150 kg, CrCl > 30 mL/min) AND *Sequential Compression Device (SCD) Further recommendations will be provided depending on the patient's clinical evaluation and follow up studies. <Ty Bacon - Last Filed: 02/05/18 13:47>
[2018-02-05] MEDS ORDERED: Gadobutrol PF 2 MMOL/2 ML Vial (for RAD) IV.SIG ONE (13:12)
--- NOTE | 2018-02-05 13:40 | MR ---
EXAM DATE: 02/05/2018 12:34 PM EDT AGE/SEX: 37 years / Female INDICATIONS: Hemorrhage. Fall/mass. CLINICAL DATA: This is the patient's initial encounter. Patient reports that signs and symptoms have been present for 1 day and indicates a pain score of 0/10. MEDICAL/SURGICAL HISTORY: None. section. COMPARISON: [facility], CT HEAD W/O CONTRAST, 02/04/2018. . TECHNIQUE: Multiplanar, multisequence examination of the brain was performed without and with 4 ml Ga davist (gadobutrol) contrast as a single exam dose. FINDINGS: Cerebrum: There is a large left temporal intraparenchymal hemorrhage with prominent surrounding suad a. Overall, this measures 6.7 x 4.1 cm. There is moderate mass effect on the left lateral ventricle w ith approximately 6 mm left to right subfalcine shift which is subtly more prominent than on prior ex am. There is no significant associated restricted diffusion more nodular/masslike enhancement. There is meningeal enhancement in this region expected with intraparenchymal hematoma. Basilar cisterns are intact. No evidence for intercurrent hemorrhage. White Matter: No significant signal abnormalities are seen in the white matter. Posterior Fossa: The cerebellum and brainstem are intact. The 4th ventricle is midline. The cerebel lopontine angle is unremarkable. The cerebellar tonsils are normal in position. Diffusion Imaging: No focal areas of restricted diffusion are seen. No evidence of acute infarction . Extracranial: The visualized portions of the orbits and paranasal sinuses are unremarkable. CONCLUSION: 1. Evolving large left temporal intraparenchymal hematoma with associated prominent surrounding suad a. Overall this measures 6.7 x 4.1 cm with moderate mass effect and subtle increased snna-fn-emedt kern bfalcine shift now measuring 6 mm. 2. No definitive evidence for underlying mass. 3. No intercurrent hemorrhage. Electronically signed by: Chadwick Olivier MD 02/05/2018 1:38 PM EDT
[2018-02-05] MEDS: QUEtiapine 100 MG Tablet PO SCH ×2 (14:24→18:08)
[2018-02-05] MEDS: Morphine Inj 4 MG/ML Vial IV.PUSH PRN ×2 (14:24→18:07)
--- NOTE | 2018-02-05 15:26 | ECHRPT ---
Indication: SOB CONCLUSIONS The left ventricular systolic function is normal with an estimated ejection fraction in the range of 55-60%. Atrial septal aneurysm is present (benign finding). Can not exclude the presence of a small intra-at rial shunt by color doppler. Bubble study not performed. Clinical correlation recommended. No regional wall motion abnormalities Grade 1 Diastolic Dysfunction. No significant valvular abnormality. The estimated pulmonary arterial pressure is 39 mmHg. IVC is normal size with reduced inspiratory collapse indicating a mildly elevated CVP. BP: / HR: Rhythm: MEASUREMENTS (Male / Female) Normal Values Technical Quality: 2D ECHO LV Diastolic Diameter PLAX 4.6 cm 4.2 - 5.9 / 3.9 - 5.3 cm LV Systolic Diameter PLAX 3.4 cm IVS Diastolic Thickness 0.7 cm 0.6 - 1.0 / 0.6 - 0.9 cm LVPW Diastolic Thickness 0.6 cm 0.6 - 1.0 / 0.6 - 0.9 cm LV Relative Wall Thickness 0.3 RV Internal Dim ED PLAX 2.1 cm LA Systolic Diameter LX 3.0 cm 3.0 - 4.0 / 2.7 - 3.8 cm M-MODE AV Cusp Separation MM 1.9 cm DOPPLER Mitral E Point Velocity 90.5 cm/s Mitral A Point Velocity 53.7 cm/s Mitral E to A Ratio 1.7 TR Peak Velocity 267.0 cm/s TR Peak Gradient 28.5 mmHg Right Atrial Pressure 10.0 mmHg Pulmonary Artery Systolic Pressu 38.5 mmHg Right Ventricular Systolic Press 38.5 mmHg FINDINGS LEFT VENTRICLE Normal left ventricular size. Wall thickness is normal. The left ventricular systolic function is normal with an estimated ejection fraction in the range of 55-60%. RIGHT VENTRICLE Normal right ventricular size and systolic function. LEFT ATRIUM The left atrial size is normal. RIGHT ATRIUM The right atrial size is normal. ATRIAL SEPTUM Atrial septal aneurysm is present (benign finding). AORTA The aortic root and proximal ascending aorta are normal in size on limited imaging. MITRAL VALVE Trace mitral valve regurgitation. AORTIC VALVE Trileaflet aortic valve. No aortic valve stenosis or regurgitation. TRICUSPID VALVE There is trace tricuspid valve regurgitation. The estimated pulmonary arterial pressure is 39 mmHg. PULMONARY VALVE No pulmonary valve regurgitation or stenosis. VESSELS The inferior vena cava is normal in size. PERICARDIUM No pericardial effusion. Hamida Velásquez MD (Electronically Signed) Final Date:05 February 2018 15:25 Amended: 05 February 2018 15:43
[2018-02-05] MEDS: Pantoprazole Inj 40 MG Vial IV.PUSH SCH (18:07)
[2018-02-06 02:02] LABS: Baso % (Auto) 0.4 % (0.0-2.0); Eos % (Auto) 0.2 % (0.0-4.0); Hematocrit 34.2 % (35.0-46.0); Hemoglobin 11.6 gm/dL (11.6-15.3); Lymph # (Auto) 1.5 th/mm3 (1.0-4.8); Lymph % (Auto) 16.4 % (9.0-44.0); Mean Corpuscular HGB Conc 33.8 % (32.0-36.0); Mean Corpuscular Hemoglobin 31.7 pg (27.0-34.0); Mean Corpuscular Volume 93.9 fL (80.0-100.0); Mono # (Auto) 0.8 th/mm3 (0.0-0.9); Platelet Count 283 th/mm3 (150-450); Red Blood Count 3.64 mil/mm3 (4.00-5.30); White Blood Count 9.4 th/mm3 (4.0-11.0)
[2018-02-06] MEDS: Chlorhexidine Gluconate 2% 1 Pack (2 Cloths) TOPICAL SCH (03:44)
[2018-02-06 03:56] LABS: Alanine Aminotransferase 28 U/L (10-53); Albumin 3.1 g/dL (3.4-5.0); Anion Gap 10 meq/L (5-15); Aspartate Aminotransferase 20 U/L (15-37); Blood Urea Nitrogen 7 mg/dL (7-18); Calcium 8.5 mg/dL (8.5-10.1); Carbon Dioxide 25.2 meq/L (21.0-32.0); Chloride 105 meq/L (98-107); Glomerular Filtration Rate Greater Than 89 mL/min (>89); Glucose,Random 92 mg/dL (74-106); Potassium 3.9 meq/L (3.5-5.1); Sodium 140 meq/L (136-145)
[2018-02-06 03:58] LABS: Alkaline Phosphatase 51 U/L (45-117); Total Protein 6.3 g/dL (6.4-8.2)
[2018-02-06] MEDS: Sod Chloride 0.9% Inj 1,000 ML IV.CONT SCH ×2 (06:04→13:30)
[2018-02-06] MEDS: Docusate Sodium 100 MG Capsule PO SCH ×2 (08:36→20:37)
[2018-02-06] MEDS: QUEtiapine 100 MG Tablet PO SCH ×3 (08:36→17:30)
--- NOTE | 2018-02-06 11:22 | P.PNCC ---
Subjective Brief History: The patient is a 37 year old, right handed female, who suffered a traumatic brain injury secondary to a fall. Apparently she tripped and fell. No seizure activity reported. No tongue biting. No incontinence of stool or urine. She was moving strongly both upper and lower extremities. No focal motor weakness. No sensory loss. She had significant expressive aphasia. She had GCS = [address] showed intraparenchymal hemorrhage in the left temporal lobe with moderate edema. Neurosurgical consultation is appreciated 24 Hour Review/Hospital Course: 02/06/2018 Patient has been stable over the last 24 hours Left intracranial intracerebral contusion with bleed does appear somewhat unusual on the CT scan and therefore MRI has been performed MRI does not reveal any area this was suggested to more despite the unusual appearance of the CT scan Discussed with the neurosurgeon and we will order MRA to see if this is not a ruptured cerebral MCA aneurysm because the entire story sort of unusual Neurologically patient is intact Motorically fully intact however does have receptive aphasia Bilateral breath sounds Hemodynamically stable Tolerating diet well Continue care and observation in the ICU Objective Vital Signs / I&O: Vital Signs 02/05/18 12:00 02/05/18 16:00 02/05/18 18:06 Temperature 98.4 F 98.8 F Pulse Rate 43 L 48 L Respiratory Rate 14 28 H 20 Blood Pressure 127/69 122/61 Pulse Oximetry 98 98 02/05/18 19:00 02/05/18 20:00 02/06/18 00:00 Temperature 98.9 F 98.7 F Pulse Rate 42 L 44 L Respiratory Rate 15 22 13 Blood Pressure 129/64 127/60 Pulse Oximetry 98 98 02/06/18 04:00 02/06/18 08:00 Temperature 98.3 F 98.7 F Pulse Rate 42 L 44 L Respiratory Rate 12 18 Blood Pressure 111/55 L 111/58 L Pulse Oximetry 99 99 Intake & Output 02/05/18 02/06/18 02/06/18 18:59 06:59 18:59 Intake Total 1605 / 1605 755 / 755 Balance 1605 / 1605 755 / 755 Weight 43.6 kg Intake: IV 1105 / 1105 105 / 105 NS Inj 1,000 ML @ 100 mls/hr IV 1000 / 1000 .CONT .Q10H [facility] Rx#:[id number] Keppra Inj 500 MG In NS Inj 100 105 / 105 105 / 105 ML @ 400 mls/hr IV.SIG Q12H [facility] Rx#:[id number] Oral 500 / 500 650 / 650 Other: # Voids 3 3 Result Diagrams: 02/06/18 01:46 02/06/18 01:46 Imaging: Impressions Head MRI 02/05/18 00:00 CONCLUSION: 1. Evolving large left temporal intraparenchymal hematoma with associated prominent surrounding edema. Overall this measures 6.7 x 4.1 cm with moderate mass effect and subtle increased [id number] subfalcine shift now measuring 6 mm. 2. No definitive evidence for underlying mass. 3. No intercurrent hemorrhage. Disinhibition Score: 21.00 Aggression Score: 14.00 Lability Score: 14.00 Agitated Behavior Total Score: 18 Assessment and Plan Attestation: Critical care time 32 minutes
[2018-02-06 14:47] LABS: Alanine Aminotransferase 28 U/L (10-53); Albumin 2.9 g/dL (3.4-5.0); Anion Gap 9 meq/L (5-15); Aspartate Aminotransferase 28 U/L (15-37); Blood Urea Nitrogen 7 mg/dL (7-18); Calcium 8.6 mg/dL (8.5-10.1); Carbon Dioxide 26.6 meq/L (21.0-32.0); Chloride 105 meq/L (98-107); Glomerular Filtration Rate Greater Than 89 mL/min (>89); Glucose,Random 98 mg/dL (74-106); Potassium 3.5 meq/L (3.5-5.1); Sodium 141 meq/L (136-145)
[2018-02-06 14:50] LABS: Alkaline Phosphatase 52 U/L (45-117); Total Protein 6.4 g/dL (6.4-8.2)
--- NOTE | 2018-02-06 16:24 | P.PNNS ---
Subjective Interval history: No acute events overnight. Physical Exam Vital signs: Vital Signs 02/05/18 18:06 02/05/18 19:00 02/05/18 20:00 Temperature 98.9 F Pulse Rate 42 L Respiratory Rate 20 15 22 Blood Pressure 129/64 Pulse Oximetry 98 02/06/18 00:00 02/06/18 04:00 02/06/18 08:00 Temperature 98.7 F 98.3 F 98.7 F Pulse Rate 44 L 42 L 44 L Respiratory Rate 13 12 18 Blood Pressure 127/60 111/55 L 111/58 L Pulse Oximetry 98 99 99 02/06/18 12:00 02/06/18 16:00 Temperature 98.5 F 97.6 F Pulse Rate 58 L 65 Respiratory Rate 19 16 Blood Pressure 121/66 113/70 Pulse Oximetry 98 98 Intake & Output 02/05/18 02/06/18 02/06/18 18:59 06:59 18:59 Intake Total 1605 / 1605 755 / 755 1100 / 1100 Balance 1605 / 1605 755 / 755 1100 / 1100 Weight 43.6 kg Intake: IV 1105 / 1105 105 / 105 1100 / 1100 NS Inj 1,000 ML @ 100 mls/hr IV 1000 / 1000 1000 / 1000 .CONT .Q10H [facility] Rx#:[id number] Ofirmev Inj 1,000 mg In 100 ml 100 / 100 @ 400 mls/hr IV.SIG Q6H PRN Rx# :[id number] Keppra Inj 500 MG In NS Inj 100 105 / 105 105 / 105 ML @ 400 mls/hr IV.SIG Q12H [facility] Rx#:[id number] Oral 500 / 500 650 / 650 Other: # Voids 3 3 Narrative: Opens eyes spontaneously PERRL Bright, awake Expressive aphasia Names 0/3, but comes close ("pennant" for pen, "10:30" for "watch" (time was in fact 10:30), "see" for glasses) Mimics x4 anti-gravity, symmetric Assessment and Plan - Plan 37 y/o female with minimal trauma presenting with large left temporal intracerebral hemorrhage. MRI without evidence of underlying mass lesion, however blood may be obscuring an underlying malignancy. Given patient's history, recommend (and ordered) a CTA of the head to rule out a vascular malformation such as an AVM (or less likely, given lack of subarachnoid blood, an aneurysm). Plan: Continue q1h neuro checks CTA head (ordered) If CTA head is negative, would recommend a repeat MRI of the brain in ~4 weeks once blood has resolved to ensure that there is no underlying malignancy. Keppra 500 mg PO BID for seizure prophylaxis Speech therapy for expressive aphasia
[2018-02-06] MEDS: Pantoprazole Inj 40 MG Vial IV.PUSH SCH (17:31)
--- NOTE | 2018-02-06 17:56 | CT ---
EXAM DATE: 02/06/2018 4:51 PM EDT AGE/SEX: 37 years / Female INDICATIONS: Left temporal intercranial hemorrhage. Rule out vascular malformation. CLINICAL DATA: This is the patient's initial encounter. Patient reports that signs and symptoms have been present for 2 days and indicates a pain score of 0/10. MEDICAL/SURGICAL HISTORY: None. None. RADIATION DOSE: 9.97 CTDI (mGy) ; Combined studies COMPARISON: [facility], CT HEAD W/O CONTRAST, 02/04/2018. . TECHNIQUE: Volumetric scanning was performed using a multi-row detector CT scanner during bolus infu sujatha of 73 ml Omnipaque 350 (iohexol) nonionic water-soluble contrast as a single exam dose. The d aida was post processed with a variety of visualization algorithms including full volume maximum inten sity projection, multi-planar sliding thin slab reformation, curved planar reformation, and surface r endering techniques. Using automated exposure control and adjustment of the mA and/or kV according t o patient size, radiation dose was kept as low as reasonably achievable to obtain optimal diagnostic quality images. DICOM format image data is available electronically for review and comparison. FINDINGS: The examination is of excellent diagnostic quality. The distal internal carotids are widely patent. T he anterior and middle cerebral circulation is widely patent bilaterally. The patient's parenchymal c ontusion in the left temporal cortex is visualized. There is no evidence of arterial venous malformat ion or other underlying vascular abnormality. Both vertebral arteries are widely patent. The basilar is widely patent. Bone windowed imaging is provided. The examination confirms the patient's nondisplaced fracture just anterior to the left temporal bone. There is possible communication with one of the air cells in the anterior most aspect of the temporal bone. I do not see evidence of the fracture extending into the t emporal bone itself. There is fluid within the mastoid air cells. The examination also demonstrates plating of the external auditory canal. Primary consideration for t his would be a small area of hemorrhage versus cerumen. CONCLUSION: 1. There is no evidence of arterial venous malformation or aneurysm. 2. The patient's parenchymal contusion on the left is again identified. 3. There is good visualization of the patient's skull fracture. This extends up to and abuts the ant erior most air cells within the mastoid. I do not see evidence of fracture through the more central p ortions of the temporal bone. 4. There is plugging of the external auditory canal. Electronically signed by: Steven Bautista MD 02/06/2018 5:55 PM EDT
--- NOTE | 2018-02-06 18:00 | CT ---
EXAM DATE: 02/06/2018 5:01 PM EDT AGE/SEX: 37 years / Female INDICATIONS: Follow up trauma. Rule out vascular malformation. CLINICAL DATA: This is the patient's initial encounter. Patient reports that signs and symptoms have been present for 1 day and indicates a pain score of 0/10. MEDICAL/SURGICAL HISTORY: . Left temporal ICH. None. RADIATION DOSE: 9.97 CTDI (mGy) ; Combined studies COMPARISON: No prior exams available for comparison. TECHNIQUE: Volumetric scanning was performed using a multirow detector CT scanner during bolus infus ion of 73 ml Omnipaque 350 (iohexol) nonionic water-soluble contrast as a single exam dose. The da ta was postprocessed with a variety of visualization algorithms including full-volume maximum intensi ty projection, multiplanar sliding thin-slab reformation, curved-planar reformation, and surface-rend ering techniques. Using automated exposure control and adjustment of the mA and/or kV according to p atient size, radiation dose was kept as low as reasonably achievable to obtain optimal diagnostic fernando lity images. DICOM format image data is available electronically for review and comparison. Percent stenosis is calculated using the diameter of the stenotic region over the diameter of the nor mal distal internal carotid artery. FINDINGS: Aortic Arch: There is a three-vessel origin of the great vessels from the aorta. No evidence of ost ial narrowing Right Carotid: The common carotid artery is intact. The carotid bulb has a normal configuration wit hout ulceration or narrowing. The internal carotid artery lumen is smooth without stenosis. The ext ernal carotid artery is intact. Left Carotid: The common carotid artery is intact. The carotid bulb has a normal configuration with out ulceration or narrowing. The internal carotid artery lumen is smooth without stenosis. The exte rnal carotid artery is intact. Vertebrals: The vertebral arteries have a symmetric diameter. No stenotic lesions are seen. CONCLUSION: 1. Negative CTA Carotid. Electronically signed by: Steven Bautista MD 02/06/2018 5:59 PM EDT
[2018-02-07 02:56] LABS: Baso % (Auto) 0.5 % (0.0-2.0); Eos # (Auto) 0.1 th/mm3 (0.0-0.4); Eos % (Auto) 1.1 % (0.0-4.0); Hematocrit 34.9 % (35.0-46.0); Hemoglobin 11.7 gm/dL (11.6-15.3); Lymph # (Auto) 1.6 th/mm3 (1.0-4.8); Lymph % (Auto) 18.8 % (9.0-44.0); Mean Corpuscular HGB Conc 33.6 % (32.0-36.0); Mean Corpuscular Hemoglobin 31.5 pg (27.0-34.0); Mean Corpuscular Volume 93.8 fL (80.0-100.0); Mono # (Auto) 0.7 th/mm3 (0.0-0.9); Mono % (Auto) 8.4 % (0.0-8.0); Neut # (Auto) 6.1 th/mm3 (1.8-7.7); Neut % (Auto) 71.2 % (16.0-70.0); Platelet Count 269 th/mm3 (150-450); Red Blood Count 3.72 mil/mm3 (4.00-5.30); White Blood Count 8.6 th/mm3 (4.0-11.0)
[2018-02-07 03:11] LABS: Alanine Aminotransferase 27 U/L (10-53); Albumin 2.9 g/dL (3.4-5.0); Anion Gap 9 meq/L (5-15); Aspartate Aminotransferase 25 U/L (15-37); Blood Urea Nitrogen 8 mg/dL (7-18); Calcium 8.6 mg/dL (8.5-10.1); Carbon Dioxide 28.4 meq/L (21.0-32.0); Chloride 106 meq/L (98-107); Glomerular Filtration Rate Greater Than 89 mL/min (>89); Glucose,Random 94 mg/dL (74-106); Potassium 3.7 meq/L (3.5-5.1); Sodium 143 meq/L (136-145)
[2018-02-07 03:13] LABS: Alkaline Phosphatase 52 U/L (45-117); Total Protein 6.4 g/dL (6.4-8.2)
[2018-02-07] MEDS: Sod Chloride 0.9% Inj 1,000 ML IV.CONT SCH (03:54)
[2018-02-07] MEDS: Chlorhexidine Gluconate 2% 1 Pack (2 Cloths) TOPICAL SCH (03:55)
[2018-02-07] MEDS: QUEtiapine 100 MG Tablet PO SCH ×3 (08:43→18:35)
[2018-02-07] MEDS: Docusate Sodium 100 MG Capsule PO SCH ×2 (08:43→20:32)
--- NOTE | 2018-02-07 10:59 | P.PNNS ---
Subjective Interval history: No acute events overnight. Physical Exam Vital signs: Vital Signs 02/06/18 12:00 02/06/18 16:00 02/06/18 20:00 Temperature 98.5 F 97.6 F 98.4 F Pulse Rate 58 L 65 48 L Respiratory Rate 19 16 22 Blood Pressure 121/66 113/70 134/71 Pulse Oximetry 98 98 97 02/07/18 00:00 02/07/18 04:00 02/07/18 08:00 Temperature 98.2 F 97.6 F 98.2 F Pulse Rate 43 L 79 47 L Respiratory Rate 13 23 16 Blood Pressure 109/64 133/85 124/74 Pulse Oximetry 98 100 100 Intake & Output 02/06/18 02/07/18 02/07/18 18:59 06:59 18:59 Intake Total 1755 / 1755 1605 / 1605 Balance 1755 / 1755 1605 / 1605 Weight 42.5 kg Intake: IV 1205 / 1205 1105 / 1105 NS Inj 1,000 ML @ 100 mls/hr IV 1000 / 1000 1000 / 1000 .CONT .Q10H [facility] Rx#:[id number] Ofirmev Inj 1,000 mg In 100 ml 100 / 100 @ 400 mls/hr IV.SIG Q6H PRN Rx# :[id number] Keppra Inj 500 MG In NS Inj 100 105 / 105 105 / 105 ML @ 400 mls/hr IV.SIG Q12H [facility] Rx#:[id number] Oral 550 / 550 500 / 500 Other: # Voids 4 4 Narrative: Opens eyes spontaneously PERRL Bright, awake Expressive aphasia Names 1/3 Mimics x4 anti-gravity, intermittently follows commands, symmetric Assessment and Plan - Plan 37 y/o female with head trauma (slip and fall) presenting with large left temporal intracerebral hemorrhage, non-displaced skull fracture. MRI without evidence of underlying mass lesion, however blood may be obscuring an underlying malignancy. On further review with , her trauma was significant and follow-up imaging consistent with left temporal cerebral contusion. CTA negative for underlying vascular lesion. Plan: Continue q1h neuro checks Discontinue scheduled mannitol CTA head negative for vascular abnormality. Left frontotemporal bone fracture again visualized. No evidence of CSF otorrhea or rhinorrhea. Keppra 500 mg PO BID for seizure prophylaxis Speech therapy for expressive aphasia
--- NOTE | 2018-02-07 12:05 | P.PNCC ---
Subjective Brief History: [place]: The patient is a 37 year old, right handed female, who suffered a traumatic brain injury secondary to a fall. Apparently she tripped and fell. No seizure activity reported. No tongue biting. No incontinence of stool or urine. She was moving strongly both upper and lower extremities. No focal motor weakness. No sensory loss. She had significant expressive aphasia. She had GCS = [address] showed intraparenchymal hemorrhage in the left temporal lobe with moderate edema. Neurosurgical consultation is appreciated. INJURIES: Basilar skull fx LEFT temporal IPH w/ 3mm L to R shift 24 Hour Review/Hospital Course: 02/06/2018 Patient has been stable over the last 24 hours Left intracranial intracerebral contusion with bleed does appear somewhat unusual on the CT scan and therefore MRI has been performed MRI does not reveal any area this was suggested to more despite the unusual appearance of the CT scan Discussed with the neurosurgeon and we will order MRA to see if this is not a ruptured cerebral MCA aneurysm because the entire story sort of unusual Neurologically patient is intact Motorically fully intact however does have receptive aphasia Bilateral breath sounds Hemodynamically stable Tolerating diet well Continue care and observation in the ICU 02/07/2018 Patient lying in bed. No distress noted. No complaints offered. Patient with some aphasia noted. Patient is hemodynamically stable, therefore she may transferred to the [facility] floor. Objective Vital Signs / I&O: Vital Signs 02/06/18 12:00 02/06/18 16:00 02/06/18 20:00 Temperature 98.5 F 97.6 F 98.4 F Pulse Rate 58 L 65 48 L Respiratory Rate 19 16 22 Blood Pressure 121/66 113/70 134/71 Pulse Oximetry 98 98 97 02/07/18 00:00 02/07/18 04:00 02/07/18 08:00 Temperature 98.2 F 97.6 F 98.2 F Pulse Rate 43 L 79 47 L Respiratory Rate 13 23 16 Blood Pressure 109/64 133/85 124/74 Pulse Oximetry 98 100 100 Intake & Output 02/06/18 02/07/18 02/07/18 18:59 06:59 18:59 Intake Total 1755 / 1755 1605 / 1605 Balance 1755 / 1755 1605 / 1605 Weight 42.5 kg Intake: IV 1205 / 1205 1105 / 1105 NS Inj 1,000 ML @ 100 mls/hr IV 1000 / 1000 1000 / 1000 .CONT .Q10H [facility] Rx#:[id number] Ofirmev Inj 1,000 mg In 100 ml 100 / 100 @ 400 mls/hr IV.SIG Q6H PRN Rx# :[id number] Keppra Inj 500 MG In NS Inj 100 105 / 105 105 / 105 ML @ 400 mls/hr IV.SIG Q12H [facility] Rx#:[id number] Oral 550 / 550 500 / 500 Other: # Voids 4 4 Result Diagrams: 02/07/18 02:45 02/07/18 02:45 Imaging: Impressions Head CTA 02/06/18 00:00 CONCLUSION: 1. There is no evidence of arterial venous malformation or aneurysm. 2. The patient's parenchymal contusion on the left is again identified. 3. There is good visualization of the patient's skull fracture. This extends up to and abuts the anterior most air cells within the mastoid. I do not see evidence of fracture through the more central portions of the temporal bone. 4. There is plugging of the external auditory canal. Neck CTA 02/06/18 00:00 CONCLUSION: 1. Negative CTA Carotid. Disinhibition Score: 15.75 Aggression Score: 14.00 Lability Score: 18.66 Agitated Behavior Total Score: 16 Objective Remarks: GENERAL: This is a 37-year-old female sitting up in bed. No distress noted. SKIN: Warm and dry. HEAD: Atraumatic. Normocephalic. EYES: PERRLA ENT: No nasal bleeding or discharge. Mucous membranes pink and moist. NECK: Trachea midline. No JVD. CARDIOVASCULAR: Regular rate and rhythm. RESPIRATORY: No accessory muscle use. Lungs are clear to auscultation. Breath sounds equal bilaterally. No distress or dyspnea. GASTROINTESTINAL: BS + x 4 quads. Abdomen soft, non-tender, nondistended. MUSCULOSKELETAL: Extremities without cyanosis, or edema. + peripheral pulses x 4 extremities. Warm with good capillary refill and sensation. MAEW - occasionally follows commands. NEUROLOGICAL: Awake. Expressive aphasia noted. Assessment and Plan Plan: [place]: This is a 37-year-old female who sustained a mechanical fall. She tripped over a bunch of carpet and fell backwards striking her head 3 days prior to admission. No LOC. Reports diminished hearing in left ear and confusion since fall. INJURIES: Basilar skull fx LEFT temporal IPH w/ 3mm L to R shift Procedures: Consults: Neurosurgery. Neuropsych. Case management. Diet: Regular diet. Tolerating po diet. Encourage good po intake with each meal. Speech therapy consulted Pulmonary: Encourage good pulmonary toileting. IS at bedside and pt encouraged to use. Rationale for use explained to patient, and verbalized understanding. PAIN Management: Percocet 5 mg q 4h. Behavior: Seroquel 100 mg TID. Haldol. 2.5 mg q 4h. Activity: OOB. PT and OT ordered GI prophylaxis: IV Protonix 40 mg Bowel regimen: Colace. MOM. Lactulose PRN. LBM 0 DVT prophylaxis: Mechanical VTE with SCDs. Chemical management contraindicated in light of IPH. DC Planning: Case management consulted for assistance with final discharge disposition. Patient will need rehab or SNF placement. Emotional support provided to patient at bedside and plan of care discussed. Discussed with RN at bedside. Discussed pt condition and plan of care with collaborating trauma surgeon. Patient is hemodynamically stable in the ICU, and therefore she can be transferred to the med/surg floor. The trauma team will round each day, and evaluate plan of care on a daily basis. Basilar skull fx LEFT temporal IPH w/ 3mm L to R shift Neurosurgery consulted and assisting in management care 02/06: CTA head - NO AVM or aneurysm. 02/06: CTA neck - NEG. 02/05: MRI brain - evolving L IPH (w/ increased L to R shift.). 02/05: ECHO: EF = 55-60%. Atrial septal aneurysm. ?? shunt. Diastolic dysfunction CT brain for any change in neurological status Seizure precautions Seizure prophylaxis with IV Keppra Supportive care Serial neuro checks DC mannitol Speech therapy consult Encourage out of bed PT and OT ordered Bowel regimen Neuropsych consulted and assisting in management and care Seroquel 100 mg TID for behavior management Haldol 2.5 mg every 4 hours for agitation
[2018-02-07] MEDS: Pantoprazole Inj 40 MG Vial IV.PUSH SCH (18:34)
[2018-02-08 03:16] LABS: Albumin 3.3 g/dL (3.4-5.0); Anion Gap 7 meq/L (5-15); Aspartate Aminotransferase 25 U/L (15-37); Blood Urea Nitrogen 9 mg/dL (7-18); Calcium 8.9 mg/dL (8.5-10.1); Carbon Dioxide 28.9 meq/L (21.0-32.0); Chloride 105 meq/L (98-107); Glomerular Filtration Rate Greater Than 89 mL/min (>89); Glucose,Random 95 mg/dL (74-106); Potassium 4.1 meq/L (3.5-5.1); Sodium 141 meq/L (136-145)
[2018-02-08 03:18] LABS: Baso # (Auto) 0.1 th/mm3 (0.0-0.2); Baso % (Auto) 0.7 % (0.0-2.0); Eos # (Auto) 0.2 th/mm3 (0.0-0.4); Hematocrit 36.8 % (35.0-46.0); Hemoglobin 12.5 gm/dL (11.6-15.3); Lymph # (Auto) 1.8 th/mm3 (1.0-4.8); Lymph % (Auto) 21.9 % (9.0-44.0); Mean Corpuscular HGB Conc 33.9 % (32.0-36.0); Mean Corpuscular Hemoglobin 31.6 pg (27.0-34.0); Mean Corpuscular Volume 93.2 fL (80.0-100.0); Mean Platelet Volume 7.3 fL (7.0-11.0); Mono # (Auto) 0.6 th/mm3 (0.0-0.9); Mono % (Auto) 7.4 % (0.0-8.0); Neut # (Auto) 5.7 th/mm3 (1.8-7.7); Platelet Count 305 th/mm3 (150-450); Red Blood Count 3.95 mil/mm3 (4.00-5.30); Red Cell Distribution Width 12.9 % (11.6-17.2); White Blood Count 8.4 th/mm3 (4.0-11.0)
[2018-02-08 03:19] LABS: Alanine Aminotransferase 28 U/L (10-53); Alkaline Phosphatase 55 U/L (45-117); Total Protein 7.1 g/dL (6.4-8.2)
[2018-02-08 03:50] LABS: Ovalocytes 1+; Platelet Estimate Normal (Normal); Platelet Morphology Normal (Normal)
[2018-02-08 03:52] LABS: Acanthocytes Occ
[2018-02-08] MEDS: Chlorhexidine Gluconate 2% 1 Pack (2 Cloths) TOPICAL SCH (04:39)
[2018-02-08] MEDS: Docusate Sodium 100 MG Capsule PO SCH ×2 (09:17→20:09)
[2018-02-08] MEDS: QUEtiapine 100 MG Tablet PO SCH (09:17)
--- NOTE | 2018-02-08 12:03 | P.PNNPSY ---
- Behavior Intact: Impulsive/agitated - Cognitive Moderate: Confused/orientation, Insight/awareness, Judgment/problem solving - Psychosocial Intact: Psychosocial, Family/other adjustment, Realistic expectation - Progress Notes/Response to Treatment Contents of Sessions: Adjustment, Level of consciousness Time with Patient: 30 minutes Premorbid Psychological Status: Premorbid Cognitive, Emotional and Behavioral Status: Stable. The patient has high school years of education and a solid work history prior to this injury. The patient has no prior psychiatric difficulties, as described above. Substance abuse history is unremarkable. Behavioral Reactions of Patient and Family/Support System: Stable. The patients family is experiencing ongoing issues of adjustment given the nature of the injury, and this aspect of recovery will require ongoing monitoring. Emotional/Behavioral Status of Patient and Family/Support System: Stable. Pertinent issues, if appropriate to this patients clinical care, are described in detail above. Maximizing Acute Care Outcome: It is recommended that the patient be monitored for emergent behavioral impulsivity as the medical condition evolves. This patients neuropathological challenges may limit rehabilitation potential going forward, and these challenges will require specialized therapeutic skills to maximize outcome. Additionally, the patients family is experiencing ongoing issues of adjustment given the traumatic nature of the injury, and they may benefit from ongoing psychological assistance. At this point in the recovery process, the patient does not have cognitive capacity as the patient is unable to understand a situation and its likely consequences, nor is the patient able to manipulate information rationally. Cognitive capacity will be assessed throughout the recovery process. Anticipated Problems: Ongoing areas of concern will include behavioral impulsivity, lack of insight and judgment, which is expected to improve with time and treatment. Treatment Plan: This clinician will continue to follow with you throughout the course of this patients critical care treatment, and I will be available to meet with the patients family/support system to facilitate their understanding and the ongoing care of their family member. The goals of neuropsychological intervention shall be both educational and supportive to the family/support system as is deemed clinically appropriate. [place] COG Scale: Level Disinhibition Score: 14.00 Aggression Score: 14.00 Lability Score: 14.00 Agitated Behavior Total Score: 14 Impression: 37 year old female s/P TBI 2T fall on 02/04/2018 who is now agitated/restless requiring PRN Haldol. Progress Note Narrative: PTD 4. 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 She is [place] , no agitated/restless, but improving. I will follow. 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
[2018-02-08] MEDS: QUEtiapine 25 MG Tablet PO SCH (13:21)
--- NOTE | 2018-02-08 13:46 | P.PNCC ---
Subjective Brief History: [place]: The patient is a 37 year old, right handed female, who suffered a traumatic brain injury secondary to a fall. Apparently she tripped and fell. No seizure activity reported. No tongue biting. No incontinence of stool or urine. She was moving strongly both upper and lower extremities. No focal motor weakness. No sensory loss. She had significant expressive aphasia. She had GCS = [address] showed intraparenchymal hemorrhage in the left temporal lobe with moderate edema. Neurosurgical consultation is appreciated. INJURIES: Basilar skull fx LEFT temporal IPH w/ 3mm L to R shift 24 Hour Review/Hospital Course: 02/06/2018 Patient has been stable over the last 24 hours Left intracranial intracerebral contusion with bleed does appear somewhat unusual on the CT scan and therefore MRI has been performed MRI does not reveal any area this was suggested to more despite the unusual appearance of the CT scan Discussed with the neurosurgeon and we will order MRA to see if this is not a ruptured cerebral MCA aneurysm because the entire story sort of unusual Neurologically patient is intact Motorically fully intact however does have receptive aphasia Bilateral breath sounds Hemodynamically stable Tolerating diet well Continue care and observation in the ICU 02/07/2018 Patient lying in bed. No distress noted. No complaints offered. Patient with some aphasia noted. Patient is hemodynamically stable, therefore she may transferred to the [facility] floor. 02/08/2018 Pt sitting up in bed. Visitor at bedside. No complaints offered. Both receptive and expressive aphagia noted. Plan for transfer to floor once a bed is available. Objective Vital Signs / I&O: Vital Signs 02/07/18 16:00 02/07/18 20:00 02/08/18 00:00 Temperature 98.4 F 98.2 F 97.8 F Pulse Rate 63 65 50 L Respiratory Rate 18 20 22 Blood Pressure 111/67 112/71 119/69 Pulse Oximetry 100 98 97 02/08/18 04:00 02/08/18 08:00 Temperature 98.6 F 98.1 F Pulse Rate 45 L 47 L Respiratory Rate 16 20 Blood Pressure 107/63 125/70 Pulse Oximetry 99 98 Intake & Output 02/07/18 02/08/18 02/08/18 18:59 06:59 18:59 Intake Total 1200 / 1200 450 / 450 Balance 1200 / 1200 450 / 450 Weight 42.1 kg Intake: IV 210 / 210 Keppra Inj 500 MG In NS Inj 100 210 / 210 ML @ 400 mls/hr IV.SIG Q12H LEILANI Rx#:[id number] Oral 1200 / 1200 240 / 240 Other: # Voids 4 2 Result Diagrams: 02/08/18 02:32 02/08/18 02:32 Disinhibition Score: 14.00 Aggression Score: 14.00 Lability Score: 14.00 Agitated Behavior Total Score: 14 Objective Remarks: GENERAL: This is a 37-year-old female sitting up in bed. No distress noted. SKIN: Warm and dry. HEAD: Atraumatic. Normocephalic. EYES: PERRLA ENT: No nasal bleeding or discharge. Mucous membranes pink and moist. NECK: Trachea midline. No JVD. CARDIOVASCULAR: Regular rate and rhythm. RESPIRATORY: No accessory muscle use. Lungs are clear to auscultation. Breath sounds equal bilaterally. No distress or dyspnea. GASTROINTESTINAL: BS + x 4 quads. Abdomen soft, non-tender, nondistended. MUSCULOSKELETAL: Extremities without cyanosis, or edema. + peripheral pulses x 4 extremities. Warm with good capillary refill and sensation. MAEW - occasionally follows commands. NEUROLOGICAL: Awake. Expressive and receptive aphasia noted. Assessment and Plan Plan: [place]: This is a 37-year-old female who sustained a mechanical fall. She tripped over a bunch of carpet and fell backwards striking her head 3 days prior to admission. No LOC. Reports diminished hearing in left ear and confusion since fall. INJURIES: Basilar skull fx LEFT temporal IPH w/ 3mm L to R shift Procedures: Consults: Neurosurgery. Neuropsych. Case management. Diet: Regular diet. Tolerating po diet. Encourage good po intake with each meal. Speech therapy consulted. Pulmonary: Encourage good pulmonary toileting. IS at bedside and pt encouraged to use. Rationale for use explained to patient, and verbalized understanding. PAIN Management: Percocet 5 mg q 4h. Behavior: Seroquel decreased to 50, 50 100 (hs) mg . Haldol. 2.5 mg q 4h as needed. . Activity: OOB. PT and OT ordered GI prophylaxis: IV Protonix 40 mg Bowel regimen: Colace. MOM. Lactulose PRN. LBM 0 DVT prophylaxis: Mechanical VTE with SCDs. Chemical management contraindicated in light of IPH. DC Planning: Case management consulted for assistance with final discharge disposition. Patient will need rehab or SNF placement. Emotional support provided to patient at bedside and plan of care discussed. Discussed with RN at bedside. Discussed pt condition and plan of care with collaborating trauma surgeon. Patient is hemodynamically stable in the ICU, and therefore she can be transferred to the med/surg floor. The trauma team will round each day, and evaluate plan of care on a daily basis. Basilar skull fx LEFT temporal IPH w/ 3mm L to R shift Neurosurgery consulted and assisting in management care 02/06: CTA head - NO AVM or aneurysm. 02/06: CTA neck - NEG. 02/05: MRI brain - evolving L IPH (w/ increased L to R shift.). 02/05: ECHO: EF = 55-60%. Atrial septal aneurysm. ?? shunt. Diastolic dysfunction CT brain for any change in neurological status Seizure precautions Seizure prophylaxis with IV Keppra Supportive care Serial neuro checks DC mannitol Speech therapy consult Encourage out of bed PT and OT ordered Bowel regimen Neuropsych consulted and assisting in management and care Seroquel 50, 50 100mg for behavior management Haldol 2.5 mg every 4 hours for agitation Placement needed Attestation: Patient seen and examined during ICU rounds, GCS is 15, she has aphasia and speech is working, transfer to floor
--- NOTE | 2018-02-08 17:00 | P.PNNS ---
Subjective Interval history: pt seen this am during rounds, doing better, still has expressive aphasia but trying to converse. has some left sided head pain behind her ear. otherwise no neuro changes overnight. Physical Exam Vital signs: Vital Signs 02/07/18 20:00 02/08/18 00:00 02/08/18 04:00 Temperature 98.2 F 97.8 F 98.6 F Pulse Rate 65 50 L 45 L Respiratory Rate 20 22 16 Blood Pressure 112/71 119/69 107/63 Pulse Oximetry 98 97 99 02/08/18 08:00 Temperature 98.1 F Pulse Rate 47 L Respiratory Rate 20 Blood Pressure 125/70 Pulse Oximetry 98 Intake & Output 02/07/18 02/08/18 02/08/18 18:59 06:59 18:59 Intake Total 1200 / 1200 450 / 450 Balance 1200 / 1200 450 / 450 Weight 42.1 kg Intake: IV 210 / 210 Keppra Inj 500 MG In NS Inj 100 210 / 210 ML @ 400 mls/hr IV.SIG Q12H LEILANI Rx#:[id number] Oral 1200 / 1200 240 / 240 Other: # Voids 4 2 Narrative: Awake, alert. Pleasant. PERRL Expressive aphasia Names 1/3 Mimics x4 anti-gravity, intermittently follows commands, symmetric +left hamilton sign Assessment and Plan - Plan 37 y/o female with head trauma (slip and fall) presenting with large left temporal intracerebral hemorrhage, non-displaced skull fracture. MRI without evidence of underlying mass lesion, however blood may be obscuring an underlying malignancy. On further review with , her trauma was significant and follow-up imaging consistent with left temporal cerebral contusion. CTA negative for underlying vascular lesion. Plan: cont nonsurgical management cont neuro checks cont therapy and rehab efforts Keppra 500 mg PO BID for seizure prophylaxis Speech therapy for expressive aphasia
[2018-02-08] MEDS: Pantoprazole Inj 40 MG Vial IV.PUSH SCH (19:49)
[2018-02-08] MEDS ORDERED: QUEtiapine 100 MG Tablet PO SCH (21:00)
[2018-02-09] MEDS: Chlorhexidine Gluconate 2% 1 Pack (2 Cloths) TOPICAL SCH (04:24)
--- NOTE | 2018-02-09 08:28 | P.PNNPSY ---
- Behavior Intact: Impulsive/agitated - Progress Notes/Response to Treatment Contents of Sessions: Adjustment, Level of consciousness Time with Patient: 15 minutes Premorbid Psychological Status: Premorbid Cognitive, Emotional and Behavioral Status: Stable. The patient has high school years of education and a solid work history prior to this injury. The patient has no prior psychiatric difficulties, as described above. Substance abuse history is unremarkable. Behavioral Reactions of Patient and Family/Support System: Stable. The patients family is experiencing ongoing issues of adjustment given the nature of the injury, and this aspect of recovery will require ongoing monitoring. Emotional/Behavioral Status of Patient and Family/Support System: Stable. Pertinent issues, if appropriate to this patients clinical care, are described in detail above. Maximizing Acute Care Outcome: It is recommended that the patient be monitored for emergent behavioral impulsivity as the medical condition evolves. This patients neuropathological challenges may limit rehabilitation potential going forward, and these challenges will require specialized therapeutic skills to maximize outcome. Additionally, the patients family is experiencing ongoing issues of adjustment given the traumatic nature of the injury, and they may benefit from ongoing psychological assistance. At this point in the recovery process, the patient does not have cognitive capacity as the patient is unable to understand a situation and its likely consequences, nor is the patient able to manipulate information rationally. Cognitive capacity will be assessed throughout the recovery process. Anticipated Problems: Ongoing areas of concern will include behavioral impulsivity, lack of insight and judgment, which is expected to improve with time and treatment. Treatment Plan: This clinician will continue to follow with you throughout the course of this patients critical care treatment, and I will be available to meet with the patients family/support system to facilitate their understanding and the ongoing care of their family member. The goals of neuropsychological intervention shall be both educational and supportive to the family/support system as is deemed clinically appropriate. [place] COG Scale: Level V Disinhibition Score: 14.00 Aggression Score: 14.00 Lability Score: 14.00 Agitated Behavior Total Score: 14 Impression: 37 year old female s/P TBI 2T fall on 02/04/2018 who is now calm and cooperative. Progress Note Narrative: PTD 5. This patient is transferred to the floor from ICU. She remains calm and cooperative, with communication issues as noted elsewhere. She is managed on Seroquel 50/50/100 and has a PRN Haldol (not required). Trauma team is titrating Seroquel to 25/25/75. She is an aphasic [place]. I will follow. 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
[2018-02-09] MEDS: Docusate Sodium 100 MG Capsule PO SCH ×2 (09:19→20:27)
[2018-02-09] MEDS: QUEtiapine 25 MG Tablet PO SCH ×3 (09:30→20:28)
--- NOTE | 2018-02-09 11:34 | P.PN ---
Subjective Interval history: TRAUMA PTD: 8. HD: 5 Pt sitting up in bed. No distress noted. at bedside. Pt has some clear and appropriate speech, When I address the patient she responds with "Hi" and waves. Pt does have some expressive aphagia. Pt has been OOB and ambulating with PT and her . Eating well. Physical Exam Vital signs: Vital Signs 02/08/18 16:00 02/08/18 20:00 02/09/18 00:00 Temperature 98.1 F 98.7 F 98.2 F Pulse Rate 69 68 77 Respiratory Rate 18 18 18 Blood Pressure 126/74 121/65 133/64 Pulse Oximetry 99 99 97 02/09/18 04:00 02/09/18 08:00 Temperature 97.7 F 98.1 F Pulse Rate 62 63 Respiratory Rate 18 16 Blood Pressure 111/59 L 113/65 Pulse Oximetry 98 97 Intake & Output 02/08/18 02/09/18 02/09/18 18:59 06:59 18:59 Intake Total 480 / 480 450 / 450 Balance 480 / 480 450 / 450 Intake: IV 210 / 210 Keppra Inj 500 MG In NS Inj 100 210 / 210 ML @ 400 mls/hr IV.SIG Q12H LEILANI Rx#:[id number] Oral 480 / 480 240 / 240 Other: # Voids 2 2 Date of Last Bowel Movement 02/08/18 # Bowel Movements 1 Narrative: GENERAL: This is a 37-year-old female sitting up in bed. No distress noted. SKIN: Warm and dry. HEAD: Atraumatic. Normocephalic. EYES: PERRLA ENT: No nasal bleeding or discharge. Mucous membranes pink and moist. NECK: Trachea midline. No JVD. CARDIOVASCULAR: Regular rate and rhythm. RESPIRATORY: No accessory muscle use. Lungs are clear to auscultation. Breath sounds equal bilaterally. No distress or dyspnea. GASTROINTESTINAL: BS + x 4 quads. Abdomen soft, non-tender, nondistended. MUSCULOSKELETAL: Extremities without cyanosis, or edema. + peripheral pulses x 4 extremities. Warm with good capillary refill and sensation. MAEW - occasionally follows commands. NEUROLOGICAL: Awake drifts back to sleep easily.. Expressive and receptive aphasia noted. Results - Labs CBC & Chem 7: 02/08/18 02:32 02/08/18 02:32 Laboratory Results - last 24 hr 02/08/18 02/08/18 02/09/18 20:23 23:50 06:01 Osmolality 294 290 296 H Assessment and Plan - Plan [place]: This is a 37-year-old female who sustained a mechanical fall. She tripped over a bunch of carpet and fell backwards striking her head 3 days prior to admission. No LOC. Reports diminished hearing in left ear and confusion since fall. INJURIES: Basilar skull fx LEFT temporal IPH w/ 3mm L to R shift Procedures: Consults: Neurosurgery. Neuropsych. Case management. Diet: Regular diet. Tolerating po diet. Encourage good po intake with each meal. Speech therapy consulted. Pulmonary: Encourage good pulmonary toileting. IS at bedside and pt encouraged to use. Rationale for use explained to patient, and verbalized understanding. PAIN Management: Percocet 5 mg q 4h. Behavior: Seroquel decreased to 25,25. 75 (hs) mg . Haldol. 2.5 mg q 4h as needed. . Activity: OOB. PT and OT ordered GI prophylaxis: IV Protonix 40 mg Bowel regimen: Colace. MOM. Lactulose PRN. LBM 0 DVT prophylaxis: Mechanical VTE with SCDs. Chemical management contraindicated in light of IPH. DC Planning: Case management consulted for assistance with final discharge disposition. Patient will need rehab or SNF placement. [facility] bed. Emotional support provided to patient at bedside and plan of care discussed. Discussed with RN at bedside. Discussed pt condition and plan of care with collaborating trauma surgeon. Patient is hemodynamically stable in the ICU, and therefore she can be transferred to the med/surg floor. The trauma team will round each day, and evaluate plan of care on a daily basis. Basilar skull fx LEFT temporal IPH w/ 3mm L to R shift Neurosurgery consulted and assisting in management care 02/06: CTA head - NO AVM or aneurysm. 02/06: CTA neck - NEG. 02/05: MRI brain - evolving L IPH (w/ increased L to R shift.). 9/28: ECHO: EF = 55-60%. Atrial septal aneurysm. ?? shunt. Diastolic dysfunction CT brain for any change in neurological status Seizure precautions Seizure prophylaxis with IV Keppra Supportive care Serial neuro checks DC mannitol Speech therapy consult Encourage out of bed PT and OT ordered Bowel regimen Neuropsych consulted and assisting in management and care Seroquel 25, 25, 75mg for behavior management Haldol 2.5 mg every 4 hours for agitation Placement needed - Attending Attestation She is seen and examined with the nurse practitioner during rounds patient is friendly awake and alert he continues to receive speech therapy she would benefit from neuro rehab as she has aphasia at times-case management social worker is working on a jyotsna bed in [place]
[2018-02-09] MEDS: Pantoprazole Inj 40 MG Vial IV.PUSH SCH (19:10)
--- NOTE | 2018-02-09 20:12 | P.PNNS ---
Subjective Interval history: in room, reports speech is slowly improving. Physical Exam Vital signs: Vital Signs 02/09/18 00:00 02/09/18 04:00 02/09/18 08:00 Temperature 98.2 F 97.7 F 98.1 F Pulse Rate 77 62 63 Respiratory Rate 18 18 16 Blood Pressure 133/64 111/59 L 113/65 Pulse Oximetry 97 98 97 02/09/18 12:00 02/09/18 16:00 Temperature 98.2 F 98.0 F Pulse Rate 62 74 Respiratory Rate 18 18 Blood Pressure 116/63 118/70 Pulse Oximetry 99 99 Intake & Output 02/09/18 02/09/18 02/10/18 06:59 18:59 06:59 Intake Total 450 / 450 600 / 600 105 / 105 Balance 450 / 450 600 / 600 105 / 105 Intake: IV 210 / 210 105 / 105 Keppra Inj 500 MG In NS Inj 100 210 / 210 105 / 105 ML @ 400 mls/hr IV.SIG Q12H LEILANI Rx#:[id number] Oral 240 / 240 600 / 600 Other: # Voids 2 3 Date of Last Bowel Movement 02/08/18 02/08/18 # Bowel Movements 1 Narrative: Awake, alert. Pleasant. PERRL Expressive aphasia Names 1/3 Mimics x4 anti-gravity, intermittently follows commands, symmetric +left hamilton sign Assessment and Plan - Plan 37 y/o female with head trauma (slip and fall) presenting with large left temporal intracerebral hemorrhage, non-displaced skull fracture. MRI without evidence of underlying mass lesion, however blood may be obscuring an underlying malignancy. On further review with , her trauma was significant and follow-up imaging consistent with left temporal cerebral contusion. CTA negative for underlying vascular lesion. Plan: neuro exam stable, speech slowly improving cont therapy and rehab efforts Keppra 500 mg PO BID for seizure prophylaxis Speech therapy for expressive aphasia no further neurosurgical interventions planned clear to dc to rehab from [facility] standpoint, will sign off, call prn
--- NOTE | 2018-02-10 08:22 | P.PNNPSY ---
- Behavior Intact: Impulsive/agitated - Cognitive Moderate: Confused/orientation, Insight/awareness - Psychosocial Intact: Psychosocial, Family/other adjustment, Realistic expectation - Progress Notes/Response to Treatment Contents of Sessions: Adjustment, Level of consciousness Time with Patient: 15 minutes Premorbid Psychological Status: Premorbid Cognitive, Emotional and Behavioral Status: Stable. The patient has high school years of education and a solid work history prior to this injury. The patient has no prior psychiatric difficulties, as described above. Substance abuse history is unremarkable. Behavioral Reactions of Patient and Family/Support System: Stable. The patients family is experiencing ongoing issues of adjustment given the nature of the injury, and this aspect of recovery will require ongoing monitoring. Emotional/Behavioral Status of Patient and Family/Support System: Stable. Pertinent issues, if appropriate to this patients clinical care, are described in detail above. Maximizing Acute Care Outcome: It is recommended that the patient be monitored for emergent behavioral impulsivity as the medical condition evolves. This patients neuropathological challenges may limit rehabilitation potential going forward, and these challenges will require specialized therapeutic skills to maximize outcome. Additionally, the patients family is experiencing ongoing issues of adjustment given the traumatic nature of the injury, and they may benefit from ongoing psychological assistance. At this point in the recovery process, the patient does not have cognitive capacity as the patient is unable to understand a situation and its likely consequences, nor is the patient able to manipulate information rationally. Cognitive capacity will be assessed throughout the recovery process. Anticipated Problems: Ongoing areas of concern will include behavioral impulsivity, lack of insight and judgment, which is expected to improve with time and treatment. Treatment Plan: This clinician will continue to follow with you throughout the course of this patients critical care treatment, and I will be available to meet with the patients family/support system to facilitate their understanding and the ongoing care of their family member. The goals of neuropsychological intervention shall be both educational and supportive to the family/support system as is deemed clinically appropriate. [place] COG Scale: Level V Disinhibition Score: 14.00 Aggression Score: 14.00 Lability Score: 14.00 Agitated Behavior Total Score: 14 Impression: 37 year old female s/P TBI 2T fall on 02/04/2018 who is now calm and cooperative. Progress Note Narrative: PTD 6. The patient remains calm and cooperative, still aphasic however. No issues of agitation/restlessness. She is [place]. Seroquel titrated to 25/25/ 75. I will follow. 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
[2018-02-10] MEDS: QUEtiapine 25 MG Tablet PO SCH ×3 (08:41→21:19)
[2018-02-10] MEDS: Docusate Sodium 100 MG Capsule PO SCH ×2 (08:41→21:18)
--- NOTE | 2018-02-10 11:48 | P.PN ---
Subjective Interval history: Trauma PTD: 9. HD: 7 Pt OOB in restroom. Pt just finished taking a shower. Walked back to bed with 's assistance - somewhat unsteady. When asked why she is here, she states, I don't know that stuff." When asked the date she states, "I think it's February 09? I know it's February because it's my birthday on the . I will be 38." Pt cannot remember why she is in the hospital. With each question asked, she looks to her for the answer. Physical Exam Vital signs: Vital Signs 02/09/18 12:00 02/09/18 16:00 02/09/18 20:25 Temperature 98.2 F 98.0 F 98.1 F Pulse Rate 62 74 60 Respiratory Rate 18 16 Blood Pressure 116/63 118/70 119/68 Pulse Oximetry 99 99 99 02/10/18 00:00 02/10/18 04:00 02/10/18 08:00 Temperature 98.2 F 98.1 F Pulse Rate 63 67 75 Respiratory Rate 18 12 Blood Pressure 117/64 114/62 123/75 Pulse Oximetry 99 99 Intake & Output 02/09/18 02/10/18 02/10/18 18:59 06:59 18:59 Intake Total 600 / 600 210 / 210 Balance 600 / 600 210 / 210 Weight 43.2 kg Intake: IV 210 / 210 Keppra Inj 500 MG In NS Inj 100 210 / 210 ML @ 400 mls/hr IV.SIG Q12H LEILANI Rx#:[id number] Oral 600 / 600 Other: # Voids 3 Date of Last Bowel Movement 02/08/18 Narrative: GENERAL: This is a 37-year-old walking back from the restroom. No distress noted. SKIN: Warm and dry. HEAD: Atraumatic. Normocephalic. EYES: PERRLA ENT: No nasal bleeding or discharge. Mucous membranes pink and moist. NECK: Trachea midline. No JVD. CARDIOVASCULAR: Regular rate and rhythm. RESPIRATORY: No accessory muscle use. Lungs are clear to auscultation. Breath sounds equal bilaterally. No distress or dyspnea. GASTROINTESTINAL: BS + x 4 quads. Abdomen soft, non-tender, nondistended. MUSCULOSKELETAL: Extremities without cyanosis, or edema. + peripheral pulses x 4 extremities. Warm with good capillary refill and sensation. MAEW - occasionally follows commands. NEUROLOGICAL: Awake and alert. Forgetful. Expressive and receptive aphasia noted. Results - Labs CBC & Chem 7: 02/08/18 02:32 02/08/18 02:32 Assessment and Plan - Plan [place]: This is a 37-year-old female who sustained a mechanical fall. She tripped over a bunch of carpet and fell backwards striking her head 3 days prior to admission. No LOC. Reports diminished hearing in left ear and confusion since fall. INJURIES: Basilar skull fx LEFT temporal IPH w/ 3mm L to R shift Procedures: Consults: Neurosurgery. Neuropsych. Case management. Diet: Regular diet. Tolerating po diet. Encourage good po intake with each meal. Speech therapy consulted. Pulmonary: Encourage good pulmonary toileting. IS at bedside and pt encouraged to use. Rationale for use explained to patient, and verbalized understanding. PAIN Management: Percocet 5 mg q 4h. Behavior: Seroquel 25, 25. 75mg mg . Activity: OOB. PT and OT ordered GI prophylaxis: Pepcid 20 mg twice daily Bowel regimen: Colace. MOM. Lactulose PRN. LBM 0 DVT prophylaxis: Mechanical VTE with SCDs. Chemical management contraindicated in light of IPH. DC Planning: Case management consulted for assistance with final discharge disposition. Patient will need rehab or SNF placement. [facility] is following the patient for a possible jyotsna bed. Emotional support provided to patient at bedside and plan of care discussed. Discussed with RN at bedside. Discussed pt condition and plan of care with collaborating trauma surgeon. Patient is hemodynamically stable in the ICU, and therefore she can be transferred to the med/surg floor. The trauma team will round each day, and evaluate plan of care on a daily basis. Basilar skull fx LEFT temporal IPH w/ 3mm L to R shift Neurosurgery consulted and assisting in management care 02/06: CTA head - NO AVM or aneurysm. 02/06: CTA neck - NEG. 02/05: MRI brain - evolving L IPH (w/ increased L to R shift.). 02/05: ECHO: EF = 55-60%. Atrial septal aneurysm. ?? shunt. Diastolic dysfunction CT brain for any change in neurological status Seizure precautions Seizure prophylaxis with po Keppra Supportive care Serial neuro checks DC mannitol Speech therapy consult Encourage out of bed PT and OT ordered Bowel regimen Neuropsych consulted and assisting in management and care Seroquel 25, 25, 75mg for behavior management Placement needed
[2018-02-10] MEDS ORDERED: Aluminum/Magnesium/Simethacone Susp 30 ML UDC PO PRN (14:31)
--- NOTE | 2018-02-10 17:10 | P.PNNS ---
Subjective Interval history: 01/11. sLOWLY IMPROVING. Still cannot remember why she is in the hospital. When asked a question asked, she looks to her for the answer. Physical Exam Vital signs: Vital Signs 02/09/18 20:25 02/10/18 00:00 02/10/18 04:00 Temperature 98.1 F 98.2 F 98.1 F Pulse Rate 60 63 67 Respiratory Rate 16 18 18 Blood Pressure 119/68 117/64 114/62 Pulse Oximetry 99 99 99 02/10/18 08:00 02/10/18 12:00 Temperature 98.2 F Pulse Rate 75 87 Respiratory Rate 12 14 Blood Pressure 123/75 146/82 H Pulse Oximetry 98 Intake & Output 02/09/18 02/10/18 02/10/18 18:59 06:59 18:59 Intake Total 600 / 600 210 / 210 Balance 600 / 600 210 / 210 Weight 43.2 kg Intake: IV 210 / 210 Keppra Inj 500 MG In NS Inj 100 210 / 210 ML @ 400 mls/hr IV.SIG Q12H LEILANI Rx#:[id number] Oral 600 / 600 Other: # Voids 3 Date of Last Bowel Movement 02/08/18 Narrative: The patient is alert, awake. Comfortable, in no acute distress. Speech with expressive aphasia improving Cranial nerve examination: pupils to be equal, round and reactive to light. Extra-ocular movements are intact. Facial motor and sensory function are normal and symmetrical. Gross hearing appears intact. Sternocleidomastoid and trapezius muscles are symmetrical. Other cranial nerves are intact. Neck is soft and supple with a good range of motion without pain. Muscle strength is normal in all muscle groups of both upper and lower extremities. Sensory examination is intact to light touch and pin prick in both the upper and lower extremities. Deep tendon reflexes are symmetrical in both upper and lower extremities. There is a bilateral plantar flexion response. Cerebellar examination is unremarkable, without deficits. Lungs are clear Heart regular rhythm is regular rate Skin warm and dry Assessment and Plan - Plan 37 y/o female with head trauma (slip and fall) presenting with large left temporal intracerebral hemorrhage, non-displaced skull fracture. neuro exam stable, speech slowly improving cont therapy and rehab efforts Keppra 500 mg PO BID for seizure prophylaxis Speech therapy for expressive aphasia no further neurosurgical interventions planned cleared for discharge to rehab from [facility] standpoint,
[2018-02-10] MEDS: Famotidine 20 MG Tablet PO SCH (21:19)
[2018-02-10] MEDS: levETIRAcetam 500 MG Tablet PO SCH (21:19)
[2018-02-11] MEDS: QUEtiapine 25 MG Tablet PO SCH ×2 (08:02→13:37)
[2018-02-11] MEDS: levETIRAcetam 500 MG Tablet PO SCH (08:02)
[2018-02-11] MEDS: Famotidine 20 MG Tablet PO SCH (08:02)
[2018-02-11] MEDS: Docusate Sodium 100 MG Capsule PO SCH (08:02)
--- NOTE | 2018-02-11 08:22 | P.PNNPSY ---
- Behavior Intact: Impulsive/agitated - Cognitive Moderate: Confused/orientation, Severe: Insight/awareness, Judgment/problem solving - Psychosocial Intact: Psychosocial, Family/other adjustment, Realistic expectation - Progress Notes/Response to Treatment Contents of Sessions: Adjustment, Level of consciousness Time with Patient: 30 minutes Premorbid Psychological Status: Premorbid Cognitive, Emotional and Behavioral Status: Stable. The patient has high school years of education and a solid work history prior to this injury. The patient has no prior psychiatric difficulties, as described above. Substance abuse history is unremarkable. Behavioral Reactions of Patient and Family/Support System: Stable. The patients family is experiencing ongoing issues of adjustment given the nature of the injury, and this aspect of recovery will require ongoing monitoring. Emotional/Behavioral Status of Patient and Family/Support System: Stable. Pertinent issues, if appropriate to this patients clinical care, are described in detail above. Maximizing Acute Care Outcome: It is recommended that the patient be monitored for emergent behavioral impulsivity as the medical condition evolves. This patients neuropathological challenges may limit rehabilitation potential going forward, and these challenges will require specialized therapeutic skills to maximize outcome. Additionally, the patients family is experiencing ongoing issues of adjustment given the traumatic nature of the injury, and they may benefit from ongoing psychological assistance. At this point in the recovery process, the patient does not have cognitive capacity as the patient is unable to understand a situation and its likely consequences, nor is the patient able to manipulate information rationally. Cognitive capacity will be assessed throughout the recovery process. Anticipated Problems: Ongoing areas of concern will include behavioral impulsivity, lack of insight and judgment, which is expected to improve with time and treatment. Treatment Plan: This clinician will continue to follow with you throughout the course of this patients critical care treatment, and I will be available to meet with the patients family/support system to facilitate their understanding and the ongoing care of their family member. The goals of neuropsychological intervention shall be both educational and supportive to the family/support system as is deemed clinically appropriate. [place] COG Scale: Level V Disinhibition Score: 14.00 Aggression Score: 14.00 Lability Score: 14.00 Agitated Behavior Total Score: 14 Impression: 37 year old female s/P TBI 2T fall on 02/04/2018 who is now calm and cooperative. Progress Note Narrative: PTD 7. This patient is neurobehaviorally calm and compliant, but neurocognitively impaired. She has left temporal lobe pathology from TBI, and as such has issues with memory and language, and as such remains quite confused. She is [place]. She remains on Seroquel . Her neurocognitive difficulties are prominent, dizziness also a problem and as such has walking difficulties, complicated with impulsivity. I will follow. Following discharge, she is referred to my outpatient neuropsychology clinic, barring insurance barriers. 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
[2018-02-11 10:58] VITALS: O2SAT 99
[2018-02-11 13:25] VITALS: BP 113/73; PULSE 70; RESP 15; TEMP 99
--- NOTE | 2018-02-11 13:25 | P.DS ---
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 No LOC. Reports diminished hearing in left ear and confusion since fall. INJURIES: Basilar skull fx LEFT temporal IPH w/ 3mm L to R shift Basilar skull fx, LEFT temporal IPH w/ L to R shift Neurosurgery consulted, F/U outpatient 02/06: CTA head - No AVM or aneurysm. 02/06: CTA neck - NEG. 02/05: MRI brain - evolving L IPH w/ increased L to R shift 02/05: ECHO: EF = 55-60%. Atrial septal aneurysm. ?? shunt. Diastolic dysfunction PO Keppra complete today Speech therapy consulted, F/U outpatient OOB-PT and OT ordered Neuropsychology consulted, F/U outpatient Continue Seroquel F/U with PCP in 1 week Plan of care discussed with patient at bedside. Collaborating Trauma surgeon agrees with plan. Case management consulted to assist with discharge planning. Denied from [facility] as patient is too high functioning for a jyotsna bed. Patient is clear from trauma surgery standpoint to safely discharge home with outpatient ST follow-up. - Time Spent with Patient Total time spent providing and/or coordinating discharge services: Greater than 30 minutes - Quality: VTE Deep Vein Thrombosis/Pulmonary Embolism Present on Admission: No Exam Vital signs: Vital Signs 02/10/18 16:00 02/10/18 17:14 02/10/18 20:00 Temperature 98.5 F 98.0 F Pulse Rate 71 61 Respiratory Rate 16 12 16 Blood Pressure 133/76 131/77 Pulse Oximetry 98 98 02/11/18 00:00 02/11/18 04:00 02/11/18 07:00 Temperature 97.7 F 98.1 F Pulse Rate 60 65 Respiratory Rate 12 12 12 Blood Pressure 106/69 120/62 Pulse Oximetry 99 98 02/11/18 08:00 02/11/18 10:19 02/11/18 11:33 Temperature 98.4 F Pulse Rate 69 Respiratory Rate 14 12 12 Blood Pressure 116/67 Pulse Oximetry 99 Intake & Output 02/10/18 02/11/18 02/11/18 18:59 06:59 18:59 Intake Total 720 / 720 Output Total Balance 719 / 719 Intake: Oral 720 / 720 Output: Stool Other: # Voids 2 # Bowel Movements 1 Narrative: GENERAL: 37-year-old well-nourished, well developed female sitting up in bed in no acute distress. SKIN: Warm and dry. NECK: Trachea midline. No JVD. CARDIOVASCULAR: Regular rate and rhythm. RESPIRATORY: No accessory muscle use. Lungs clear to auscultation. Breath sounds equal bilaterally. GASTROINTESTINAL: Abdomen soft, non-tender, nondistended. + BS. MUSCULOSKELETAL: Extremities without cyanosis, or edema. MAEW, + perfused NEUROLOGICAL: A&O. Normal speech. Expressive aphasia. Results Procedures completed during hospitalization: . - Impressions ITS Impressions Head CT 02/04/18 14:26 CONCLUSION: 1. The examination demonstrates a 1.7 x 4.5 cm intraparenchymal hemorrhage in the left temporal lobe. There is moderate edema and some degree of mass effect associated with this. There is 3 mm of [id number] falcine shift. 2. Probable skull fracture as described above. Head MRI 02/05/18 00:00 CONCLUSION: 1. Evolving large left temporal intraparenchymal hematoma with associated prominent surrounding edema. Overall this measures 6.7 x 4.1 cm with moderate mass effect and subtle increased [id number] subfalcine shift now measuring 6 mm. 2. No definitive evidence for underlying mass. 3. No intercurrent hemorrhage. Head CTA 02/06/18 00:00 CONCLUSION: 1. There is no evidence of arterial venous malformation or aneurysm. 2. The patient's parenchymal contusion on the left is again identified. 3. There is good visualization of the patient's skull fracture. This extends up to and abuts the anterior most air cells within the mastoid. I do not see evidence of fracture through the more central portions of the temporal bone. 4. There is plugging of the external auditory canal. Neck CTA 02/06/18 00:00 CONCLUSION: 1. Negative CTA Carotid. Discharge Plan - Discharge Disposition Patient Disposition: Discharge Home - Discharge Condition Condition: Stable - Discharge Order Discharge Orders: Discharge Order (Routine); Ordered 02/10/18 Ordered By: Tawana Peters - Physicians Team Primary Care Provider: Primary Care Vanessai,Nikki Attending Provider: Elvia Man Other Providers: Jean Paul Quintana, PhD ; Efra Hills MD ; Malcolm Vazquez MD ; Systems,[employer] ; Ej Perea MD ; Tawana Peters ARNP ; Luke Bruce MD ; Elvia Man MD ; Ashwini Mejias ARNP ; Jocelyne Mckenzie MD ; Ty Bacon MD
== END 2018-02-11 16:39 | disposition home or self-care (01) ==
LOC: PHED 13:58 → PHEDA 15:32 → N03 18:55 → N05 02-08 12:18
PROVIDERS: ADMIT Surgery Trauma Surgery; ATTEND Surgery Trauma Surgery